=== PATIENT | female | born 1965 | race Caucasian/White ===

== ENCOUNTER → 2017-04-12 | Outpatient (CLI) | payer MEDICARE, BC ==
[2017-04-12 15:15] LABS: CHCM 33.7; HCT 42.6 % (34.0-46.0); HDW 2.62; HGB 14.1 gm/dL (11.4-16.0); MCH 30.7 pg (25.0-35.0); MCHC 33.2 g/dL (31.0-37.0); MCV 92.3 fL (80.0-100.0); Mean Platelet Volume 7.7; RBC 4.62 m/uL (3.80-5.40); RDW 13.8 % (11.5-15.5); WBC 4.5 k/uL (3.8-10.6)
[2017-04-12 15:16] VITALS: BP 119/58; PULSE 57; RESP 16; TEMP 98.1; BMI 32.5
[2017-04-12 15:33] LABS: ALT 32 U/L (9-52); AST 24 U/L (14-36); Alkaline Phosphatase 62 U/L (38-126); Anion Gap 10 mmol/L; Blood Urea Nitrogen 17 mg/dL (7-17); Calcium 9.4 mg/dL (8.4-10.2); Carbon Dioxide 29 mmol/L (22-30); Chloride 105 mmol/L (98-107); Glucose 84 mg/dL (74-99); Non-African American GFR(MDRD) >60 (>60 ml/min/1.73 sqM); Potassium 4.1 mmol/L (3.5-5.1); Sodium 144 mmol/L (137-145); Total Bilirubin 0.5 mg/dL (0.2-1.3); Total Protein 6.9 g/dL (6.3-8.2)
[2017-04-12 15:44] LABS: Prealbumin 20 mg/dL (18-36); Total Iron Binding Capacity 267 ug/dL (265-497)
[2017-04-12 16:38] LABS: Vitamin B12 625 pg/mL (239-931)
--- NOTE | 2017-04-26 17:06 | P.HPBAR ---
Bariatric H&P - History & Physicial H&P Date: 04/12/17 History & Physicial: Visit/CC: Band/Panni Patient initial contact: Initial weight: 151.046 kg Initial weight in pounds: 333.00 Height: 5 ft 6 in Initial BMI: 53.7 Last weight: Current weight: 91.342 kg Current weight in pounds: 201.00 Current BMI: 32.5 [place] body weight (based on NIH guidelines): 58.967 kg Excess body weight loss: 65.0% The patient is a 51 year-old F who presents for Bariatric Assessment. The patient is requesting information regarding pending colectomy. She's had a previous band has lost significant weight. She has lost in excess of 125 pounds. She has a minimal GERD symptoms which is managed symptomatically. She' s had trouble with chronic skin irritations and rashes from her panniculus. Past Medical History Past Medical History: GERD/Reflux Additional Past Medical History / Comment(s): HX OF AUTOIMMUNE DISORDER, SCHOGREN'S SYNDROME, EDEMA TO ONEL EXTREMETIES, TREMORS, HX MIGRAINES, LUPUS, HX OF HEPATITIS @ 14 MONTHS R/T TAINTED WATER, STATES HAS PROBLEMS R/T PITUATARY GLAND NOT HAVING "ENOUGH FLUID AROUND IT". December 2015 using snowblower and it pressed against abdomen/esophogas led to inflammation of area around lap band in January 2016 (led to band being emptied and subsequent edema). History of Any Multi-Drug Resistant Organisms: None Reported Past Surgical History: Bariatric Surgery, Cholecystectomy, Hysterectomy Additional Past Surgical History / Comment(s): MOLES REMOVED Additional Past Anesthesia/Blood Transfusion Reaction / Comm: "STATES GETS VERY HYPER, POST-OP" STATES HAD A BIPOLAR PSYCHOTIC EPISODE POST OP Past Psychological History: Depression Smoking Status: Never smoker - Past Family History Mother Family Medical History: Cancer Additional Family Medical History / Comment(s): LEUKEMIA Surgical - Exam Vital Signs Temp Pulse Resp BP 98.1 F 57 L 16 119/58 04/12/17 15:13 04/12/17 15:13 04/12/17 15:13 04/12/17 15:13 - General well developed, no distress - Eyes PERRL - ENT normal pinna - Neck no masses - Respiratory normal expansion - Abdomen Well-formed panniculus with evidence of chronic skin irritation Abdomen: soft, non tender Results - Labs 04/12/17 14:46 04/12/17 14:46 Bariatric Assessment & Plan Plan: Status post lap band surgery with 133 pound weight loss. Patient has a large well-formed panniculus. She's had chronic issues with skin irritation. Patient appeared P authorize for panniculectomy. I discussed with patient regarding competition procedure including wound infection seroma hematoma. Also discussed with the possible need for cosmetic surgery Bariatric Checklist Checklist: Plan: Checklist: EGD: 1. Hiatal hernia: 2. H. Pylori: HgbA1c: Vitamin D: Smoking: Never smoker Primary care physician referral: Psychiatry clearance: Cardiology clearance: Sleep study: Diet journal: VTE risk score: VTE risk level: Rehab needs at discharge:
== END | disposition home or self-care (01) ==
LOC: BARWHC3 13:24
PROVIDERS: ATTEND Surgery
DX: Z48.815 Encounter for surgical aftercare following surgery on the digestive system (principal); K21.9 Gastro-esophageal reflux disease without esophagitis; F32.9 Major depressive disorder, single episode, unspecified; E66.01 Morbid (severe) obesity due to excess calories; E44.0 Moderate protein-calorie malnutrition; E55.9 Vitamin D deficiency, unspecified; Z98.84 Bariatric surgery status
CPT/HCPCS: 84134; 84425; 80053; 82607; 82746; 83550; 84443; 85027; 82306; 36415; G0463; 99211

== ENCOUNTER → 2017-06-14 | Outpatient (CLI) | payer MEDICARE, BC ==
[2017-06-14 13:44] VITALS: BP 130/66; PULSE 56; RESP 16; TEMP 98; BMI 32.8
--- NOTE | 2017-06-14 14:45 | P.HPBAR ---
Bariatric H&P - History & Physicial H&P Date: 06/14/17 History & Physicial: Visit/CC: Band follow-up no adj Patient initial contact: Initial weight: 151.046 kg Initial weight in pounds: 333.00 Height: 5 ft 6 in Initial BMI: 53.7 Last weight: 201.6 Current weight: 92.334 kg Current weight in pounds: 203.00 Current BMI: 32.8 [place] body weight (based on NIH guidelines): 58.967 kg Excess body weight loss: 64.0% The patient is a 51 year-old F who presents for Bariatric Assessment. Patient presents today for LAP-BAND follow-up. She feels she is a good zone. She's had some minimal GERD. Patient has had plastic surgery consultation for abdominoplasty reduction mammoplasty thigh lift and liposuction. Past Medical History Past Medical History: GERD/Reflux Additional Past Medical History / Comment(s): HX OF AUTOIMMUNE DISORDER, SCHOGREN'S SYNDROME, EDEMA TO ONEL EXTREMETIES, TREMORS, HX MIGRAINES, LUPUS, HX OF HEPATITIS @ 14 MONTHS R/T TAINTED WATER, STATES HAS PROBLEMS R/T PITUATARY GLAND NOT HAVING "ENOUGH FLUID AROUND IT". December 2015 using snowblower and it pressed against abdomen/esophogas led to inflammation of area around lap band in January 2016 (led to band being emptied and subsequent edema). History of Any Multi-Drug Resistant Organisms: None Reported Past Surgical History: Bariatric Surgery, Cholecystectomy, Hysterectomy Additional Past Surgical History / Comment(s): MOLES REMOVED Additional Past Anesthesia/Blood Transfusion Reaction / Comm: "STATES GETS VERY HYPER, POST-OP" STATES HAD A BIPOLAR PSYCHOTIC EPISODE POST OP Smoking Status: Never smoker - Past Family History Mother Family Medical History: Cancer Additional Family Medical History / Comment(s): LEUKEMIA Surgical - Exam Vital Signs Temp Pulse Resp BP 98.0 F 56 L 16 130/66 06/14/17 13:42 06/14/17 13:42 06/14/17 13:42 06/14/17 13:42 - General well developed, no distress - Eyes PERRL - Abdomen Abdomen: soft, non tender Bariatric Assessment & Plan Plan: Patient LAP-BAND will be observed. Her GERD symptoms are minimal. The patient follow-up in 8 weeks. Bariatric Checklist Checklist: Plan: Checklist: EGD: 1. Hiatal hernia: 2. H. Pylori: HgbA1c: Vitamin D: Smoking: Never smoker Primary care physician referral: Psychiatry clearance: Cardiology clearance: Sleep study: Diet journal: VTE risk score: VTE risk level: Rehab needs at discharge:
== END | disposition home or self-care (01) ==
LOC: BARWHC3 13:07
PROVIDERS: ATTEND Surgery
DX: Z09 Encounter for follow-up examination after completed treatment for conditions other than malignant neoplasm (principal); K21.9 Gastro-esophageal reflux disease without esophagitis; Z98.84 Bariatric surgery status
CPT/HCPCS: 99211

== ENCOUNTER → 2018-08-15 | Outpatient (CLI) | payer MEDICARE, BC ==
[2018-08-15 14:00] VITALS: BP 103/68; PULSE 55; TEMP 97.7; BMI 35.5
--- NOTE | 2018-08-15 15:35 | P.HPBAR ---
Bariatric H&P - History & Physicial H&P Date: 08/15/18 History & Physicial: Visit/CC: lap band followup Patient initial contact: Initial weight: 151.046 kg Initial weight in pounds: 333.00 Height: 5 ft 6 in Initial BMI: 53.7 Last weight: Current weight: 99.79 kg Current weight in pounds: 220.00 Current BMI: 35.5 [place] body weight (based on NIH guidelines): 58.967 kg Excess body weight loss: 55.6% The patient is a 52 year-old F who presents for Bariatric Assessment. Patient presents today for lab band follow up. She has had some complaints of dysphagia. She is requesting some fluid to be removed from her band. Past Medical History Past Medical History: GERD/Reflux Additional Past Medical History / Comment(s): HX OF AUTOIMMUNE DISORDER, SCHOGREN'S SYNDROME, EDEMA TO ONEL EXTREMETIES, TREMORS, HX MIGRAINES, LUPUS, HX OF HEPATITIS @ 14 MONTHS R/T TAINTED WATER, STATES HAS PROBLEMS R/T PITUATARY GLAND NOT HAVING "ENOUGH FLUID AROUND IT". December 2015 using snowblower and it pressed against abdomen/esophogas led to inflammation of area around lap band in January 2016 (led to band being emptied and subsequent edema). History of Any Multi-Drug Resistant Organisms: None Reported Past Surgical History: Bariatric Surgery, Cholecystectomy, Hysterectomy Additional Past Surgical History / Comment(s): MOLES REMOVED Additional Past Anesthesia/Blood Transfusion Reaction / Comm: "STATES GETS VERY HYPER, POST-OP" STATES HAD A BIPOLAR PSYCHOTIC EPISODE POST OP Past Psychological History: Depression Smoking Status: Never smoker Past Alcohol Use History: None Reported Past Drug Use History: None Reported - Past Family History Mother Family Medical History: Cancer Additional Family Medical History / Comment(s): LEUKEMIA Surgical - Exam Vital Signs Temp Pulse BP 97.7 F 55 L 103/68 08/15/18 13:56 08/15/18 13:56 08/15/18 13:56 - General well developed, no distress - Eyes PERRL - ENT normal pinna - Neck no masses - Respiratory normal expansion - Cardiovascular Rhythm: regular - Abdomen Abdomen: soft, non tender Bariatric Assessment & Plan Plan: Patient's lap band was adjusted. 2 mL was removed with bed. There currently is 2 mL in the band. She'll follow-up in one month. Bariatric Checklist Checklist: Plan: Checklist: EGD: 1. Hiatal hernia: 2. H. Pylori: HgbA1c: Vitamin D: Smoking: Never smoker Primary care physician referral: Psychiatry clearance: Cardiology clearance: Sleep study: Diet journal: VTE risk score: VTE risk level: Rehab needs at discharge:
== END ==
LOC: BARWHC3 13:05
PROVIDERS: ATTEND Surgery
DX: Z48.815 Encounter for surgical aftercare following surgery on the digestive system (principal); Z98.84 Bariatric surgery status; Z90.49 Acquired absence of other specified parts of digestive tract; Z90.710 Acquired absence of both cervix and uterus
CPT/HCPCS: 99212

== ENCOUNTER → 2019-02-13 | Outpatient (CLI) | payer MEDICARE, BC ==
[2019-02-13 14:48] VITALS: BP 98/59; PULSE 55; TEMP 98.1; BMI 42.7
--- NOTE | 2019-02-14 09:58 | P.HPBAR ---
Bariatric H&P - History & Physicial H&P Date: 02/13/19 History & Physicial: Visit/CC: lpa band follow up Patient initial contact: Initial weight: 151.046 kg Initial weight in pounds: 333.00 Height: 5 ft 6 in Initial BMI: 53.7 Last weight: Current weight: 120.202 kg Current weight in pounds: 265.00 Current BMI: 42.7 [place] body weight (based on NIH guidelines): 58.967 kg Excess body weight loss: 33.4% The patient is a 53 year-old F who presents for Bariatric Assessment. Patient presents today for lab band follow up. She's had some complaints of GERD. Past Medical History Past Medical History: GERD/Reflux Additional Past Medical History / Comment(s): HX OF AUTOIMMUNE DISORDER, SCHOGREN'S SYNDROME, EDEMA TO ONEL EXTREMETIES, TREMORS, HX MIGRAINES, LUPUS, HX OF HEPATITIS @ 14 MONTHS R/T TAINTED WATER, STATES HAS PROBLEMS R/T PITUATARY GLAND NOT HAVING "ENOUGH FLUID AROUND IT". December 2015 using snowblower and it pressed against abdomen/esophogas led to inflammation of area around lap band in January 2016 (led to band being emptied and subsequent edema). History of Any Multi-Drug Resistant Organisms: None Reported Past Surgical History: Bariatric Surgery, Cholecystectomy, Hysterectomy, Orthopedic Surgery Additional Past Surgical History / Comment(s): MOLES REMOVED right Additional Past Anesthesia/Blood Transfusion Reaction / Comm: "STATES GETS VERY HYPER, POST-OP" STATES HAD A BIPOLAR PSYCHOTIC EPISODE POST OP Past Psychological History: Depression Smoking Status: Never smoker Past Alcohol Use History: None Reported Past Drug Use History: None Reported - Past Family History Mother Family Medical History: Cancer Additional Family Medical History / Comment(s): LEUKEMIA Surgical - Exam Vital Signs Temp Pulse BP 98.1 F 55 L 98/59 02/13/19 14:45 02/13/19 14:45 02/13/19 14:45 - General well developed, well nourished - Eyes PERRL - ENT normal pinna - Neck no masses - Respiratory normal expansion - Cardiovascular Rhythm: regular - Abdomen Abdomen: soft, non tender Bariatric Assessment & Plan Plan: GERD. Patient will undergo EGD. She will have her band adjusted after her EGD is performed. Bariatric Checklist Checklist: Plan: Checklist: EGD: 1. Hiatal hernia: 2. H. Pylori: HgbA1c: Vitamin D: Smoking: Never smoker Primary care physician referral: Psychiatry clearance: Cardiology clearance: Sleep study: Diet journal: VTE risk score: VTE risk level: Rehab needs at discharge:
== END ==
LOC: BARWHC3 13:05
PROVIDERS: ATTEND Surgery
DX: Z48.815 Encounter for surgical aftercare following surgery on the digestive system (principal); K21.9 Gastro-esophageal reflux disease without esophagitis; Z98.84 Bariatric surgery status; Z90.49 Acquired absence of other specified parts of digestive tract; Z90.710 Acquired absence of both cervix and uterus
CPT/HCPCS: 99212

== ENCOUNTER 2019-03-06 09:21 | Day surgery (SDC) | payer MEDICARE, BC ==
[2019-03-02 10:41] VITALS: BMI 43.2
[~2019-03-06 09:21] MED LIST: LACTATED RINGERS 1,000 ML IV SCH
[2019-03-06] MEDS ORDERED: LIDOCAINE 1% 20 ML VIAL (10MG/ML) FOR IV START INTRADERMA ONE (10:35)
[2019-03-06 10:38] VITALS: TEMP 98.2
[2019-03-06] MEDS ORDERED: LIDOCAINE 1% INJ 10MG/ML (20 ML MDV) ONE (10:58)
[2019-03-06] MEDS ORDERED: GLYCOPYRROLATE 0.2 MG/ML 2 ML VIAL ONE (10:58)
[2019-03-06] MEDS ORDERED: PROPOFOL 10 MG/ML 20 ML VIAL IV ONE (10:58)
--- NOTE | 2019-03-06 11:01 | P.GSHP ---
History of Present Illness H&P Date: 03/06/19 Chief Complaint: GERD This is a 53-year-old female who presents today for EGD. She's had issues with GERD. Patient has a LAP-BAND device. Her band is currently empty. Past Medical History Past Medical History: Cancer, Fibromyalgia, GERD/Reflux, Osteoarthritis (OA), Rheumatoid Arthritis (RA) Additional Past Medical History / Comment(s): HX OF AUTOIMMUNE DISORDER, SJOGREN'S SYNDROME, EDEMA TO ONEL EXTREMETIES, TREMORS with fatigue, HX MIGRAINES, LUPUS, HX OF HEPATITIS @ 14 MONTHS R/T TAINTED WATER, STATES HAS PROBLEMS R/T PITUATARY GLAND NOT HAVING "ENOUGH FLUID AROUND IT". December 2015 using snowblower and it pressed against abdomen/esophogas led to inflammation of area around lap band in January 2016 (led to band being emptied and subsequent edema). hx vertigo, encapsulated CA brain tumor. History of Any Multi-Drug Resistant Organisms: None Reported Past Surgical History: Bariatric Surgery, Cholecystectomy, Hernia Repair, Hysterectomy, Orthopedic Surgery Additional Past Surgical History / Comment(s): brain tumor removed "astrocytomoa" rt oophorectomy, benign MOLES REMOVED, rt knee arthroscopy Additional Past Anesthesia/Blood Transfusion Reaction / Comment(s): "STATES GETS VERY HYPER, POST-OP" Smoking Status: Never smoker - Past Family History Mother Family Medical History: Cancer Additional Family Medical History / Comment(s): LEUKEMIA Medications and Allergies Home Medications Medication Instructions Recorded Confirmed Type Artificial Tears-Hypromellose 1 drop BOTH EYES DIRECTED PRN 04/23/16 03/06/19 History [Artificial Tear Drops] Gabapentin [Neurontin] 600 mg PO BID 04/23/16 03/06/19 History Hydroxychloroquine Sulfate 200 mg PO MOTUWETHFR 04/23/16 03/06/19 History [Plaquenil] Hydroxychloroquine Sulfate 400 mg PO SUSA 04/23/16 03/06/19 History [Plaquenil] Naproxen Sodium 220 mg PO DAILY PRN 04/23/16 03/06/19 History Omeprazole [PriLOSEC] 20 mg PO BID 04/23/16 03/06/19 History Saliva Stimulant Agents Comb.3 1 applic PO DIRECTED PRN 04/23/16 03/06/19 History [Biotene Moisturizing Mouth] Amitriptyline HCl [Elavil] 25 mg PO HS 06/16/17 03/06/19 History Furosemide [Lasix] 40 mg PO DAILY 02/13/19 03/06/19 History FLUoxetine HCL [PROzac] 40 mg PO DAILY 03/02/19 03/06/19 History Fluticasone Nasal [place] [Flonase 2 spr EA NOSTRIL DAILY 03/02/19 03/06/19 History Nasal [place]] HYDROcodone/APAP 5-325MG [[place] 1 tab PO Q6HR PRN 03/02/19 03/06/19 History 5-325] Hydrocortisone Cream 1 applic TOPICAL BID PRN 03/02/19 03/06/19 History [Hydrocortisone 2.5% Cream] Meclizine [Antivert] 25 mg PO DAILY 03/02/19 03/06/19 History Montelukast [Singulair] 10 mg PO DAILY 03/02/19 03/06/19 History Multivitamin [Multivitamins Adult 1 each PO DAILY 03/02/19 03/06/19 History Gummies] Propranolol HCl [Inderal] 60 mg PO QAM 03/02/19 03/06/19 History SUMAtriptan SUCCINATE [Imitrex] 100 mg PO DAILY PRN 03/02/19 03/06/19 History Vitamin C/Biotin [Hair, Skin and 1 each PO DAILY 03/02/19 03/06/19 History Nails] tiZANidine HCL [Zanaflex] 4 mg PO DAILY 03/02/19 03/06/19 History Allergies Allergy/AdvReac Type Severity Reaction Status Date / Time Iodinated Contrast- Oral and Allergy Anaphylaxis Verified 03/06/19 10:19 IV Dye [Iodinated Contrast Media - IV Dye] povidone-iodine Allergy Anaphylaxis Verified 03/06/19 10:19 Sulfa (Sulfonamide Allergy Rash/Hives/ Verified 03/06/19 10:19 Antibiotics) EDEMA/FEVER codeine phosphate AdvReac Nausea & Verified 03/06/19 10:19 [From Tylenol-Codeine] Vomiting Surgical - Exam Vital Signs Temp Pulse Resp BP Pulse Ox 98.2 F 59 L 16 125/58 100 03/06/19 10:35 03/06/19 10:35 03/06/19 10:35 03/06/19 10:35 03/06/19 10:35 - General well developed, well nourished, no distress - Eyes PERRL - ENT normal pinna - Neck no masses - Respiratory normal expansion - Cardiovascular Rhythm: regular - Abdomen Abdomen: soft, non tender Assessment and Plan Assessment: GERD. We'll perform EGD.
--- NOTE | 2019-03-06 11:10 | P.OP ---
Date of Procedure: 03/06/19 Preoperative Diagnosis: GERD Postoperative Diagnosis: Antral gastritis No evidence of LAP-BAND prolapse or erosion Anesthesia: MAC Surgeon: Harpal Pemberton Pathology: other (Antrum) Condition: stable Disposition: PACU Description of Procedure: The patient's placed on the endoscopy table in the lateral position. She received IV sedation. The gastroscope placed oropharynx and passed in the esophagus and into the stomach. Scope was then placed through the pylorus. The first and second portion of the duodenum appeared normal. Scope was then brought back the antrum was mildly inflamed. A biopsies performed. The scope was then retroflexed and the remainder of the stomach appeared normal. There was no significant inflammation of the lap band site. There is no erosion of LAP-BAND. The proximal gastric pouch appeared to be normal in size. The GE junction was at 40 cm. The distal esophagus appeared normal. The proximal esophagus. Normal. Scope was withdrawn for patient.
[2019-03-06 11:34] VITALS: BP 108/62; PULSE 67; RESP 18
== END 2019-03-06 11:47 | disposition home or self-care (01) ==
LOC: ORWHC2ENDO 09:21
PROVIDERS: ATTEND Surgery
DX: K31.9 Disease of stomach and duodenum, unspecified (principal); K29.70 Gastritis, unspecified, without bleeding; K21.9 Gastro-esophageal reflux disease without esophagitis; Z98.84 Bariatric surgery status; M79.7 Fibromyalgia; M19.90 Unspecified osteoarthritis, unspecified site; M06.9 Rheumatoid arthritis, unspecified; M35.00 Sjogren syndrome, unspecified; R60.0 Localized edema; G25.2 Other specified forms of tremor; G43.909 Migraine, unspecified, not intractable, without status migrainosus; M32.9 Systemic lupus erythematosus, unspecified; E23.6 Other disorders of pituitary gland; Z90.49 Acquired absence of other specified parts of digestive tract; Z90.710 Acquired absence of both cervix and uterus; Z85.841 Personal history of malignant neoplasm of brain; Z80.6 Family history of leukemia; Z79.1 Long term (current) use of non-steroidal anti-inflammatories (NSAID); Z79.891 Long term (current) use of opiate analgesic; Z79.899 Other long term (current) drug therapy; Z91.041 Radiographic dye allergy status; Z88.5 Allergy status to narcotic agent; Z88.2 Allergy status to sulfonamides; Z91.048 Other nonmedicinal substance allergy status
CPT/HCPCS: 88305; 43239; J2001; J2704

== ENCOUNTER → 2019-03-06 | Outpatient (CLI) | payer MEDICARE, BC ==
[2019-03-06 14:18] VITALS: BP 123/58; PULSE 68; TEMP 98.3; BMI 43.5
--- NOTE | 2019-03-20 14:51 | P.HPBAR ---
Bariatric H&P - History & Physicial H&P Date: 03/06/19 History & Physicial: Visit/CC: follow up egd Patient initial contact: Initial weight: 151.046 kg Initial weight in pounds: 333.00 Height: 5 ft 6 in Initial BMI: 53.7 Last weight: Current weight: 122.47 kg Current weight in pounds: 270.00 Current BMI: 43.5 [place] body weight (based on NIH guidelines): 58.967 kg Excess body weight loss: 31.0% The patient is a 53 year-old F who presents for Bariatric Assessment. Patient's had complaints of GERD. She is considering switching to sleeve gastrectomy. Past Medical History Past Medical History: Cancer, Fibromyalgia, GERD/Reflux, Osteoarthritis (OA), Rheumatoid Arthritis (RA) Additional Past Medical History / Comment(s): HX OF AUTOIMMUNE DISORDER, SJOGREN'S SYNDROME, EDEMA TO ONEL EXTREMETIES, TREMORS with fatigue, HX MIGRAINES, LUPUS, HX OF HEPATITIS @ 14 MONTHS R/T TAINTED WATER, STATES HAS PROBLEMS R/T PITUATARY GLAND NOT HAVING "ENOUGH FLUID AROUND IT". December 2015 using snowblower and it pressed against abdomen/esophogas led to inflammation of area around lap band in January 2016 (led to band being emptied and subsequent edema). hx vertigo, encapsulated CA brain tumor. History of Any Multi-Drug Resistant Organisms: None Reported Past Surgical History: Bariatric Surgery, Cholecystectomy, Hernia Repair, Hysterectomy, Orthopedic Surgery Additional Past Surgical History / Comment(s): brain tumor removed "astrocytomoa" rt oophorectomy, benign MOLES REMOVED, rt knee arthroscopy Additional Past Anesthesia/Blood Transfusion Reaction / Comm: "STATES GETS VERY HYPER, POST-OP" Past Psychological History: Anxiety, Depression Smoking Status: Never smoker Past Alcohol Use History: None Reported Past Drug Use History: None Reported - Past Family History Mother Family Medical History: Cancer Additional Family Medical History / Comment(s): LEUKEMIA Surgical - Exam Vital Signs Temp Pulse BP 98.3 F 68 123/58 03/06/19 14:16 03/06/19 14:16 03/06/19 14:16 - General well developed, well nourished, no distress - Eyes PERRL - ENT normal pinna - Neck no masses - Respiratory normal expansion - Cardiovascular Rhythm: regular - Abdomen Abdomen: soft, non tender Bariatric Assessment & Plan Plan: History of recurrent GERD with LAP-BAND. Patient wishes to think about switching to sleeve gastrectomy. She may be followed up in [place] for this. Bariatric Checklist Checklist: Plan: Checklist: EGD: 1. Hiatal hernia: 2. H. Pylori: HgbA1c: Vitamin D: Smoking: Never smoker Primary care physician referral: Psychiatry clearance: Cardiology clearance: Sleep study: Diet journal: VTE risk score: VTE risk level: Rehab needs at discharge:
== END | disposition home or self-care (01) ==
LOC: BARWHC3 12:58
PROVIDERS: ATTEND Surgery
DX: K21.9 Gastro-esophageal reflux disease without esophagitis (principal); Z98.84 Bariatric surgery status; E66.9 Obesity, unspecified; Z68.41 Body mass index [BMI] 40.0-44.9, adult; Z71.3 Dietary counseling and surveillance
CPT/HCPCS: 99211

== ENCOUNTER → 2019-05-01 | Outpatient (CLI) | payer MEDICARE, BC ==
--- NOTE | 2019-05-05 13:32 | P.HPBAR ---
Bariatric H&P - History & Physicial H&P Date: 05/05/19 History & Physicial: Visit/CC: lap band follow up Patient initial contact: Initial weight: 151.046 kg Initial weight in pounds: 333.00 Height: 5 ft 6.5 in Initial BMI: 52.9 Last weight: Current weight: 122.924 kg Current weight in pounds: 271.00 Current BMI: 43.0 [place] body weight (based on NIH guidelines): 60.101 kg Excess body weight loss: 30.9% The patient is a 53 year-old F who presents for Bariatric Assessment. Patient p resents today for lab band follow. She currently is hungry and is requesting a fill of her band. Past Medical History Past Medical History: Cancer, Fibromyalgia, GERD/Reflux, Osteoarthritis (OA), Rheumatoid Arthritis (RA) Additional Past Medical History / Comment(s): HX OF AUTOIMMUNE DISORDER, SJOGREN'S SYNDROME, EDEMA TO ONEL EXTREMETIES, TREMORS with fatigue, HX MIGRAINES, LUPUS, HX OF HEPATITIS @ 14 MONTHS R/T TAINTED WATER, STATES HAS PROBLEMS R/T PITUATARY GLAND NOT HAVING "ENOUGH FLUID AROUND IT". December 2015 using snowblower and it pressed against abdomen/esophogas led to inflammation of area around lap band in January 2016 (led to band being emptied and subsequent edema). hx vertigo, encapsulated CA brain tumor. History of Any Multi-Drug Resistant Organisms: None Reported Past Surgical History: Bariatric Surgery, Cholecystectomy, Hernia Repair, Hysterectomy, Orthopedic Surgery Additional Past Surgical History / Comment(s): brain tumor removed "astrocytomoa" rt oophorectomy, benign MOLES REMOVED, rt knee arthroscopy Additional Past Anesthesia/Blood Transfusion Reaction / Comm: "STATES GETS VERY HYPER, POST-OP" Smoking Status: Never smoker - Past Family History Mother Family Medical History: Cancer Additional Family Medical History / Comment(s): LEUKEMIA Surgical - Exam Vital Signs Temp Pulse BP 98.2 F 63 123/79 05/01/19 13:15 05/01/19 13:15 05/01/19 13:15 - General well developed, well nourished - Abdomen Abdomen: soft, non tender Bariatric Assessment & Plan Plan: Patient LAP-BAND was adjusted. She had 0.5 mL added to her band. She currently is 2.5 mL in the band. She's ill drink water without difficulty. She'll follow-up in 4 weeks. Bariatric Checklist Checklist: Plan: Checklist: EGD: 1. Hiatal hernia: 2. H. Pylori: HgbA1c: Vitamin D: Smoking: Never smoker Primary care physician referral: Psychiatry clearance: Cardiology clearance: Sleep study: Diet journal: VTE risk score: VTE risk level: Rehab needs at discharge:
== END | disposition home or self-care (01) ==
CPT/HCPCS: 97803; G0463; 99212

== ENCOUNTER → 2019-06-12 | Outpatient (CLI) | payer MEDICARE, BC ==
[2019-06-12 13:33] VITALS: BP 110/78; PULSE 58; TEMP 98.2; BMI 43.2
--- NOTE | 2019-06-12 15:41 | P.HPBAR ---
Bariatric H&P - History & Physicial H&P Date: 06/12/19 History & Physicial: Visit/CC: initial visit Patient initial contact: Initial weight: 151.046 kg Initial weight in pounds: 333.00 Height: 5 ft 6.5 in Initial BMI: 52.9 Last weight: Current weight: 123.377 kg Current weight in pounds: 272.00 Current BMI: 43.2 [place] body weight (based on NIH guidelines): 60.101 kg Excess body weight loss: 30.4% The patient is a 53 year-old F who presents for Bariatric Assessment. Patient presents today for LAP-BAND adjusted. She currently feels hungry. She is requesting a fill. Past Medical History Past Medical History: Cancer, Fibromyalgia, GERD/Reflux, Osteoarthritis (OA), Rheumatoid Arthritis (RA) Additional Past Medical History / Comment(s): HX OF AUTOIMMUNE DISORDER, SJOGREN'S SYNDROME, EDEMA TO ONEL EXTREMETIES, TREMORS with fatigue, HX MIGRAINES, LUPUS, HX OF HEPATITIS @ 14 MONTHS R/T TAINTED WATER, STATES HAS PROBLEMS R/T PITUATARY GLAND NOT HAVING "ENOUGH FLUID AROUND IT". December 2015 using snowblower and it pressed against abdomen/esophogas led to inflammation of area around lap band in January 2016 (led to band being emptied and subsequent edema). hx vertigo, encapsulated CA brain tumor. History of Any Multi-Drug Resistant Organisms: None Reported Past Surgical History: Bariatric Surgery, Cholecystectomy, Hernia Repair, Hysterectomy, Orthopedic Surgery Additional Past Surgical History / Comment(s): brain tumor removed "astrocytomoa" rt oophorectomy, benign MOLES REMOVED, rt knee arthroscopy Additional Past Anesthesia/Blood Transfusion Reaction / Comm: "STATES GETS VERY HYPER, POST-OP" Past Psychological History: Anxiety, Depression Smoking Status: Never smoker Past Alcohol Use History: None Reported Past Drug Use History: None Reported - Past Family History Mother Family Medical History: Cancer Additional Family Medical History / Comment(s): LEUKEMIA Surgical - Exam Vital Signs Temp Pulse BP 98.2 F 58 L 110/78 06/12/19 13:29 06/12/19 13:29 06/12/19 13:29 - General well developed, well nourished, no distress - Abdomen Abdomen: soft, non tender Bariatric Assessment & Plan Plan: Patient LAP-BAND was adjusted. She had 1 mL added to her band. She currently 3.5 mL in the band. She'll follow-up in 4 weeks. Bariatric Checklist Checklist: Plan: Checklist: EGD: 1. Hiatal hernia: 2. H. Pylori: HgbA1c: Vitamin D: Smoking: Never smoker Primary care physician referral: dr reynaga Psychiatry clearance: Cardiology clearance: Sleep study: Diet journal: VTE risk score: VTE risk level: Rehab needs at discharge:
== END | disposition home or self-care (01) ==
LOC: BARWHC3 12:53
PROVIDERS: ATTEND Surgery
DX: Z46.51 Encounter for fitting and adjustment of gastric lap band (principal); Z90.49 Acquired absence of other specified parts of digestive tract; Z98.84 Bariatric surgery status; Z90.710 Acquired absence of both cervix and uterus
CPT/HCPCS: 99212

== ENCOUNTER → 2019-08-07 | Outpatient (CLI) | payer MEDICARE, BC ==
[2019-08-07 16:29] VITALS: BP 114/71; PULSE 51; TEMP 98.1; BMI 40.6
--- NOTE | 2019-08-07 16:34 | P.HPBAR ---
Bariatric H&P - History & Physicial H&P Date: 08/07/19 History & Physicial: Visit/CC: lap band follow up Patient initial contact: Initial weight: 151.046 kg Initial weight in pounds: 333.00 Height: 5 ft 6.5 in Initial BMI: 52.9 Last weight: Current weight: 116.12 kg Current weight in pounds: 256.00 Current BMI: 40.6 [place] body weight (based on NIH guidelines): 60.101 kg Excess body weight loss: 38.4% The patient is a 53 year-old F who presents for Bariatric Assessment. The patient presents today for lab band follow up. She's doing quite well. She's lost approximately 19 pounds since her last visit. She denies any dysphagia. She's had some minimal GERD. Past Medical History Past Medical History: Cancer, Fibromyalgia, GERD/Reflux, Osteoarthritis (OA), Rheumatoid Arthritis (RA) Additional Past Medical History / Comment(s): HX OF AUTOIMMUNE DISORDER, SJOGREN'S SYNDROME, EDEMA TO ONEL EXTREMETIES, TREMORS with fatigue, HX MIGRAINES, LUPUS, HX OF HEPATITIS @ 14 MONTHS R/T TAINTED WATER, STATES HAS PROBLEMS R/T PITUATARY GLAND NOT HAVING "ENOUGH FLUID AROUND IT". December 2015 using snowblower and it pressed against abdomen/esophogas led to inflammation of area around lap band in January 2016 (led to band being emptied and subsequent edema). hx vertigo, encapsulated CA brain tumor. History of Any Multi-Drug Resistant Organisms: None Reported Past Surgical History: Bariatric Surgery, Cholecystectomy, Hernia Repair, Hysterectomy, Orthopedic Surgery Additional Past Surgical History / Comment(s): brain tumor removed "astrocytomoa" rt oophorectomy, benign MOLES REMOVED, rt knee arthroscopy Additional Past Anesthesia/Blood Transfusion Reaction / Comm: "STATES GETS VERY HYPER, POST-OP" Past Psychological History: Anxiety, Depression Smoking Status: Never smoker Past Alcohol Use History: None Reported Past Drug Use History: None Reported - Past Family History Mother Family Medical History: Cancer Additional Family Medical History / Comment(s): LEUKEMIA Surgical - Exam Vital Signs Temp Pulse BP 98.1 F 51 L 114/71 08/07/19 16:27 08/07/19 16:27 08/07/19 16:27 - General well developed, well nourished, no distress - Eyes PERRL - ENT normal pinna - Neck no masses - Respiratory normal expansion - Cardiovascular Rhythm: regular - Abdomen Abdomen: soft, non tender Bariatric Assessment & Plan Plan: Patient is an excellent weight loss with her LAP-BAND. Her GERD is minimal will be observed. She will follow-up in 4 weeks. Bariatric Checklist Checklist: Plan: Checklist: EGD: 1. Hiatal hernia: 2. H. Pylori: HgbA1c: Vitamin D: Smoking: Never smoker Primary care physician referral: dr reynaga Psychiatry clearance: Cardiology clearance: Sleep study: Diet journal: VTE risk score: VTE risk level: Rehab needs at discharge:
== END ==
LOC: BARWHC3 14:42
PROVIDERS: ATTEND Surgery
DX: Z46.51 Encounter for fitting and adjustment of gastric lap band (principal); Z98.84 Bariatric surgery status; Z90.49 Acquired absence of other specified parts of digestive tract
CPT/HCPCS: 99211

== ENCOUNTER → 2020-08-19 | Outpatient (CLI) | payer MEDICARE, BC ==
[2020-08-19 13:53] VITALS: BP 119/57; PULSE 61; RESP 18; TEMP 98.4; BMI 38.3
--- NOTE | 2020-08-19 14:53 | P.HPBAR ---
Bariatric H&P - History & Physicial H&P Date: 08/19/20 History & Physicial: Visit/CC: follow up lap band Patient initial contact: Initial weight: 151.046 kg Initial weight in pounds: 333.00 Height: 5 ft 6 in Initial BMI: 53.7 Last weight: Current weight: 107.774 kg Current weight in pounds: 237.60 Current BMI: 38.3 [place] body weight (based on NIH guidelines): 58.967 kg Excess body weight loss: 46.9% The patient is a 54 year-old F who presents for Bariatric Assessment. Patient presents today for Band follow-up. She's had some mild GERD. She feels well otherwise. Some mild GERD. Past Medical History Past Medical History: Cancer, Fibromyalgia, GERD/Reflux, Osteoarthritis (OA), Rheumatoid Arthritis (RA) Additional Past Medical History / Comment(s): HX OF AUTOIMMUNE DISORDER, SJOGREN'S SYNDROME, EDEMA TO ONEL EXTREMETIES, TREMORS with fatigue, HX MIGRAINES, LUPUS, HX OF HEPATITIS @ 14 MONTHS R/T TAINTED WATER, STATES HAS PROBLEMS R/T PITUATARY GLAND NOT HAVING "ENOUGH FLUID AROUND IT". December 2015 using snowblower and it pressed against abdomen/esophogas led to inflammation of area around lap band in January 2016 (led to band being emptied and subsequent edema). hx vertigo, encapsulated CA brain tumor. History of Any Multi-Drug Resistant Organisms: None Reported Past Surgical History: Bariatric Surgery, Cholecystectomy, Hernia Repair, Hysterectomy, Orthopedic Surgery Additional Past Surgical History / Comment(s): brain tumor removed "astrocytomoa" rt oophorectomy, benign MOLES REMOVED, rt knee arthroscopy Additional Past Anesthesia/Blood Transfusion Reaction / Comm: "STATES GETS VERY HYPER, POST-OP" Past Psychological History: Anxiety, Depression Smoking Status: Never smoker Past Alcohol Use History: None Reported Past Drug Use History: None Reported - Past Family History Mother Family Medical History: Cancer Additional Family Medical History / Comment(s): LEUKEMIA Surgical - Exam Vital Signs Temp Pulse Resp BP 98.4 F 61 18 119/57 08/19/20 13:39 08/19/20 13:39 08/19/20 13:39 08/19/20 13:39 - General well developed, well nourished, no distress - Eyes PERRL - ENT normal pinna - Neck no masses - Respiratory normal expansion - Cardiovascular Rhythm: regular - Abdomen Abdomen: soft, non tender Bariatric Assessment & Plan Plan: Status post lap band procedure. Patient had mild GERD this is minimal will be observed. She'll follow-up in 4 weeks. Bariatric Checklist Checklist: Plan: Checklist: EGD: 1. Hiatal hernia: 2. H. Pylori: HgbA1c: Vitamin D: Smoking: Never smoker Primary care physician referral: Dr. Paul Psychiatry clearance: Cardiology clearance: Sleep study: Diet journal: VTE risk score: VTE risk level: Rehab needs at discharge:
[2020-08-19 15:10] LABS: HCT 42.3 % (34.0-46.0); MCH 28.3 pg (25.0-35.0); MCHC 30.6 g/dL (31.0-37.0); MCV 92.4 fL (80.0-100.0); Mean Platelet Volume 7.9; Platelet Count 166 k/uL (150-450); RBC 4.58 m/uL (3.80-5.40); RDW 15.6 % (11.5-15.5); WBC 3.8 k/uL (3.8-10.6)
[2020-08-19 20:06] LABS: ALT 14 U/L (8-44); AST 32 U/L (13-35); Albumin/Globulin Ratio 1.63 (1.60-3.17); Alkaline Phosphatase 65 U/L (41-126); BUN/Creat Ratio 15.56 Ratio (12.00-20.00); Carbon Dioxide 30.8 mmol/L (21.6-31.8); Chloride 105 mmol/L (96-109); Globulin 2.4 g/dL (1.6-3.3); Glucose 87 mg/dL (70-110); Non-African American GFR(CKD) 72.5 (60.0-200.0); Potassium 4.6 mmol/L (3.5-5.5); Sodium 144 mmol/L (135-145); Total Bilirubin 0.3 mg/dL (0.3-1.2); Total Protein 6.3 g/dL (6.2-8.2)
[2020-08-19 20:26] LABS: Folate, Serum >24.0 ng/mL
== END | disposition home or self-care (01) ==
LOC: BARWHC3 13:31
PROVIDERS: ATTEND Surgery
DX: Z48.815 Encounter for surgical aftercare following surgery on the digestive system (principal); K21.9 Gastro-esophageal reflux disease without esophagitis; E55.9 Vitamin D deficiency, unspecified; E44.0 Moderate protein-calorie malnutrition
CPT/HCPCS: 84425; 80053; 82607; 82746; 84443; 85027; 82306; G0463; 99211

== ENCOUNTER → 2021-02-17 | Outpatient (CLI) | payer MEDICARE, BC ==
[2021-02-17 13:17] VITALS: BP 114/57; PULSE 58; RESP 18; TEMP 98.4; BMI 34.8
--- NOTE | 2021-02-17 14:46 | P.HPBAR ---
Bariatric H&P - History & Physicial H&P Date: 02/17/21 History & Physicial: Visit/CC: follow up / lap band Patient initial contact: Initial weight: 151.046 kg Initial weight in pounds: 333.00 Height: 5 ft 6 in Initial BMI: 53.7 Last weight: Current weight: 97.976 kg Current weight in pounds: 216.00 Current BMI: 34.8 [place] body weight (based on NIH guidelines): 58.967 kg Excess body weight loss: 57.6% The patient is a 55 year-old F who presents for Bariatric Assessment. Patient presents today for lap band follow. She's doing quite well. She has some GERD. She's been workup for pneumonia. Past Medical History Past Medical History: Cancer, Fibromyalgia, GERD/Reflux, Osteoarthritis (OA), Rheumatoid Arthritis (RA) Additional Past Medical History / Comment(s): HX OF AUTOIMMUNE DISORDER, SJOGREN'S SYNDROME, EDEMA TO ONEL EXTREMETIES, TREMORS with fatigue, HX MIGRAINES, LUPUS, HX OF HEPATITIS @ 14 MONTHS R/T TAINTED WATER, STATES HAS PROBLEMS R/T PITUATARY GLAND NOT HAVING "ENOUGH FLUID AROUND IT". December 2015 using snowblower and it pressed against abdomen/esophogas led to inflammation of area around lap band in January 2016 (led to band being emptied and subsequent edema). hx vertigo, encapsulated CA brain tumor. History of Any Multi-Drug Resistant Organisms: None Reported Past Surgical History: Bariatric Surgery, Cholecystectomy, Hernia Repair, Hyste rectomy, Orthopedic Surgery Additional Past Surgical History / Comment(s): brain tumor removed "astrocytomoa" rt oophorectomy, benign MOLES REMOVED, rt knee arthroscopy Additional Past Anesthesia/Blood Transfusion Reaction / Comm: "STATES GETS VERY HYPER, POST-OP" Smoking Status: Never smoker - Past Family History Mother Family Medical History: Cancer Additional Family Medical History / Comment(s): LEUKEMIA Surgical - Exam Vital Signs Temp Pulse Resp BP 98.4 F 58 L 18 114/57 02/17/21 13:10 02/17/21 13:10 02/17/21 13:10 02/17/21 13:10 - General well developed, well nourished, no distress - Eyes PERRL - ENT normal pinna - Neck no masses - Respiratory normal expansion - Cardiovascular Rhythm: regular - Abdomen Abdomen: soft, non tender Bariatric Assessment & Plan Plan: She is LAP-BAND was adjusted. She'll 0.5 mL remove the bandage placed 3 mL in the band. She'll follow-up in 4 weeks. Bariatric Checklist Checklist: Plan: Checklist: EGD: 1. Hiatal hernia: 2. H. Pylori: HgbA1c: Vitamin D: Smoking: Never smoker Primary care physician referral: Dr. Paul Psychiatry clearance: Cardiology clearance: Sleep study: Diet journal: VTE risk score: VTE risk level: Rehab needs at discharge:
== END ==
LOC: BARWHC3 12:54
PROVIDERS: ATTEND Surgery
DX: Z46.51 Encounter for fitting and adjustment of gastric lap band (principal); Z98.84 Bariatric surgery status; M19.90 Unspecified osteoarthritis, unspecified site
CPT/HCPCS: 99212

== ENCOUNTER → 2021-11-17 | Outpatient (CLI) | payer MEDICARE, BC ==
[2021-11-17 13:49] VITALS: BP 120/66; PULSE 66; TEMP 98.4; BMI 30.7
--- NOTE | 2021-11-17 14:11 | P.HPBAR ---
Bariatric H&P - History & Physicial H&P Date: 11/17/21 History & Physicial: Visit/CC: lap band follow up Patient initial contact: Initial weight: 151.046 kg Initial weight in pounds: 333.00 Height: 5 ft 6.5 in Initial BMI: 52.9 Last weight: Current weight: 87.543 kg Current weight in pounds: 193.00 Current BMI: 30.7 [place] body weight (based on NIH guidelines): 60.101 kg Excess body weight loss: 69.8% The patient is a 56 year-old F who presents for Bariatric Assessment. She presents today for bariatric follow. She's had some minimal GERD. She is an excellent weight loss. She's loss 22 pounds since her last visit. Past Medical History Past Medical History: Cancer, Fibromyalgia, GERD/Reflux, Osteoarthritis (OA), Rheumatoid Arthritis (RA) Additional Past Medical History / Comment(s): HX OF AUTOIMMUNE DISORDER, SJOGREN'S SYNDROME, EDEMA TO ONEL EXTREMETIES, TREMORS with fatigue, HX MIGRAINES, LUPUS, HX OF HEPATITIS @ 14 MONTHS R/T TAINTED WATER, STATES HAS PROBLEMS R/T PITUATARY GLAND NOT HAVING "ENOUGH FLUID AROUND IT". December 2015 using snowblower and it pressed against abdomen/esophogas led to inflammation of area around lap band in January 2016 (led to band being emptied and subsequent edema). hx vertigo, encapsulated CA brain tumor. History of Any Multi-Drug Resistant Organisms: None Reported Past Surgical History: Bariatric Surgery, Cholecystectomy, Hernia Repair, Hysterectomy, Orthopedic Surgery Additional Past Surgical History / Comment(s): brain tumor removed "astrocytomoa" rt oophorectomy, benign MOLES REMOVED, rt knee arthroscopy Additional Past Anesthesia/Blood Transfusion Reaction / Comm: "STATES GETS VERY HYPER, POST-OP" Past Psychological History: Anxiety, Depression Smoking Status: Never smoker Past Alcohol Use History: None Reported Past Drug Use History: None Reported - Past Family History Mother Family Medical History: Cancer Additional Family Medical History / Comment(s): LEUKEMIA Surgical - Exam Vital Signs Temp Pulse BP 98.4 F 66 120/66 11/17/21 13:46 11/17/21 13:46 11/17/21 13:46 - General well developed, well nourished, no distress - Eyes PERRL - ENT normal pinna - Neck no masses - Respiratory normal expansion - Cardiovascular Rhythm: regular - Abdomen Abdomen: soft, non tender Bariatric Assessment & Plan Plan: Status post lap band procedure. Patient's GERD is minimal and will be observed. There was no adjustment her band performed today. She'll follow-up in 3 m [facility]. Bariatric Checklist Checklist: Plan: Checklist: EGD: 1. Hiatal hernia: 2. H. Pylori: HgbA1c: Vitamin D: Smoking: Never smoker Primary care physician referral: Dr. Paul Psychiatry clearance: Cardiology clearance: Sleep study: Diet journal: VTE risk score: VTE risk level: Rehab needs at discharge:
== END ==
LOC: BARWHC3 13:04
PROVIDERS: ATTEND Surgery
DX: Z09 Encounter for follow-up examination after completed treatment for conditions other than malignant neoplasm (principal); K21.9 Gastro-esophageal reflux disease without esophagitis; M19.90 Unspecified osteoarthritis, unspecified site; M06.9 Rheumatoid arthritis, unspecified; F41.9 Anxiety disorder, unspecified; F32.A Depression, unspecified; Z98.84 Bariatric surgery status; Z79.899 Other long term (current) drug therapy; Z91.041 Radiographic dye allergy status; Z88.2 Allergy status to sulfonamides; Z88.5 Allergy status to narcotic agent
CPT/HCPCS: 99211

== ENCOUNTER → 2021-12-22 | Outpatient (CLI) | payer MEDICARE, BC ==
[2021-12-22 18:32] LABS: Basophils # (A) 0.01 X 10*3/uL (0.00-0.10); Basophils % (A) 0.3 %; Eosinophils # (A) 0.02 X 10*3/uL (0.04-0.35); Eosinophils % (A) 0.6 %; HCT 42.3 % (37.2-46.3); HGB 13.3 g/dL (12.0-15.0); Immature Grans, Automated 0.3 %; Lymphocytes # (A) 1.38 X 10*3/uL (0.90-5.00); Lymphocytes % (A) 38.8 %; MCH 28.7 pg (27.0-32.0); MCHC 31.4 g/dL (32.0-37.0); MCV 91.4 fL (80.0-97.0); Mean Platelet Volume 11.3 fL (9.5-12.2); Monocytes # (A) 0.32 X 10*3/uL (0.20-1.00); NRBC Per 100 WBC 0 /100 WBCS (0.0-0.0); Neutrophils # (A) 1.82 X 10*3/uL (1.80-7.70); Platelet Count 211 X 10*3/uL (140-440); RBC 4.63 X 10*6/uL (4.10-5.20); RDW 15.4 % (11.5-14.5); WBC 3.56 X 10*3/uL (4.50-10.00)
[2021-12-22 18:35] LABS: % Iron Saturation 14.29 (12.00-45.00); ALT 15 U/L (8-44); AST 30 U/L (13-35); African American GFR (CKD) 90.3 (60.0-200.0); Albumin 4.1 g/dL (3.8-4.9); Albumin/Globulin Ratio 1.16 (1.60-3.17); Alkaline Phosphatase 73 U/L (41-126); BUN/Creat Ratio 17.78 Ratio (12.00-20.00); Blood Urea Nitrogen 14.9 mg/dL (9.0-27.0); C Reactive Protein <0.30 mg/dL (0.00-0.80); Calcium 9.8 mg/dL (8.7-10.3); Carbon Dioxide 23.7 mmol/L (20.0-27.5); Chloride 105 mmol/L (96-109); Creatine Kinase 61 U/L (26-186); Globulin 3.5 g/dL (1.6-3.3); Glucose 69 mg/dL (70-110); Iron 60 ug/dL (50-170); Non-African American GFR(CKD) 77.9 (60.0-200.0); Potassium 4.5 mmol/L (3.5-5.5); Sodium 141 mmol/L (135-145); Total Iron Binding Capacity 417 ug/dL (228-460); Total Protein 7.6 g/dL (6.2-8.2)
[2021-12-22 19:00] LABS: Immunoglobulin E 5.74 IU/mL (0.00-114.00)
[2021-12-22 19:08] LABS: Chol/HDL Ratio 3.75 Ratio; LDL Cholesterol,Calculated 153.8 mg/dL (0.0-131.0); VLDL Calculation 16.38 mg/dL (5.00-40.00)
[2021-12-22 19:16] LABS: Protein, Total 7.7 g/dL (6.2-8.2)
[2021-12-22 19:24] LABS: Erythrocyte Sedimentation Rate 34 mm/Hr (0-30)
[2021-12-23 14:03] LABS: ACTH 25.1 pg/mL (0.00-45.99)
[2021-12-23 14:31] LABS: Albumin 4.06 g/dL (3.80-4.90); Gamma Globulin 1.26 g/dL (0.70-1.50)
== END | disposition home or self-care (01) ==
LOC: LABWHC1 11:56
PROVIDERS: ATTEND Family Medicine
DX: M35.00 Sjogren syndrome, unspecified (principal); R06.00 Dyspnea, unspecified; M79.7 Fibromyalgia; E55.9 Vitamin D deficiency, unspecified; R41.3 Other amnesia; R25.1 Tremor, unspecified
CPT/HCPCS: 36415; 80053; 80061; 82024; 82306; 82525; 82533; 82550; 82607; 82785; 83540; 83550; 83735; 83880; 84146; 84165; 84443; 85025; 85379; 85652; 86001; 86140; 86606; 86609

== ENCOUNTER → 2022-05-04 | Outpatient (CLI) | payer MEDICARE, BC ==
[2022-05-04 14:15] VITALS: BP 143/85; PULSE 82; TEMP 98.6; BMI 26.9
--- NOTE | 2022-05-12 16:27 | P.HPBAR ---
Bariatric H&P - History & Physicial H&P Date: 05/04/22 History & Physicial: Visit/CC: lap band removal Patient initial contact: Initial weight: 151.046 kg Initial weight in pounds: 333.00 Height: 5 ft 6 in Initial BMI: 53.7 Last weight: Current weight: 75.75 kg Current weight in pounds: 167.00 Current BMI: 26.9 [place] body weight (based on NIH guidelines): 58.967 kg Excess body weight loss: 81.7% The patient is a 56 year-old F who presents for Bariatric Assessment. Patient resents today status post lap band removal. Her current weight is 187. She is increased weight was 196. Patient has complaints of GERD. And has a large panniculus. Patient requesting information on panniculectomy. Past Medical History Past Medical History: Cancer, Fibromyalgia, GERD/Reflux, Osteoarthritis (OA), Rheumatoid Arthritis (RA) Additional Past Medical History / Comment(s): HX OF AUTOIMMUNE DISORDER, SJOGREN'S SYNDROME, EDEMA TO ONEL EXTREMETIES, TREMORS with fatigue, HX MIGRAINES, LUPUS, HX OF HEPATITIS @ 14 MONTHS R/T TAINTED WATER, STATES HAS PROBLEMS R/T PITUATARY GLAND NOT HAVING "ENOUGH FLUID AROUND IT". December 2015 using snowblower and it pressed against abdomen/esophogas led to inflammation of area around lap band in January 2016 (led to band being emptied and subsequent edema). hx vertigo, encapsulated CA brain tumor. History of Any Multi-Drug Resistant Organisms: None Reported Past Surgical History: Bariatric Surgery, Cholecystectomy, Hernia Repair, Hysterectomy, Orthopedic Surgery Additional Past Surgical History / Comment(s): brain tumor removed "astrocytomoa" rt oophorectomy, benign MOLES REMOVED, rt knee arthroscopy Additional Past Anesthesia/Blood Transfusion Reaction / Comm: "STATES GETS VERY HYPER, POST-OP" Past Psychological History: Anxiety, Depression Smoking Status: Never smoker Past Alcohol Use History: None Reported Past Drug Use History: None Reported - Past Family History Mother Family Medical History: Cancer Additional Family Medical History / Comment(s): LEUKEMIA Surgical - Exam Vital Signs Temp Pulse BP 98.6 F 82 143/85 05/04/22 14:10 05/04/22 14:10 05/04/22 14:10 - General well developed, well nourished, no distress - Eyes PERRL - ENT normal pinna - Neck no masses - Respiratory normal expansion - Cardiovascular Rhythm: regular - Abdomen Well-formed panniculus. Evidence of chronic skin irritation Abdomen: soft, non tender Bariatric Assessment & Plan Plan: Resolving morbid obesity. Patient's BMI is 27. Patient is a well-formed panniculus. She is inflammation on panniculectomy.. Bariatric Checklist Checklist: Plan: Checklist: EGD: 1. Hiatal hernia: 2. H. Pylori: HgbA1c: Vitamin D: Smoking: Never smoker Primary care physician referral: Dr. Paul Psychiatry clearance: Cardiology clearance: Sleep study: Diet journal: VTE risk score: VTE risk level: Rehab needs at discharge:
== END ==
LOC: BARWHC3 13:22
PROVIDERS: ATTEND Surgery
DX: E66.01 Morbid (severe) obesity due to excess calories (principal); K21.9 Gastro-esophageal reflux disease without esophagitis; M19.90 Unspecified osteoarthritis, unspecified site; M06.9 Rheumatoid arthritis, unspecified; Z98.84 Bariatric surgery status; G43.909 Migraine, unspecified, not intractable, without status migrainosus; F41.9 Anxiety disorder, unspecified; F32.A Depression, unspecified; Z68.27 Body mass index [BMI] 27.0-27.9, adult; Z91.041 Radiographic dye allergy status; Z88.5 Allergy status to narcotic agent; Z88.2 Allergy status to sulfonamides
CPT/HCPCS: 99211

== ENCOUNTER → 2022-07-01 | Outpatient (CLI) | payer MEDICARE, BC ==
--- NOTE | 2022-07-02 15:11 | MM ---
Reason for Exam: Screening (asymptomatic). Last mammogram was performed 1 year(s) and 5 month(s) ago. Risk Values: [place] 5 year model risk: 0.8%. NCI Lifetime model risk: 5.3%. Prior Study Comparison: 02/23/2018 Bilateral MG 3D screening mammo w/cad, Unknown. 02/10/2021 Bilateral MG 3D screening mammo w/cad, [facility]. Tissue Density: There are scattered fibroglandular densities. Findings: Analyzed By CAD. Stable asymmetric prominent soft tissue in the right breast outer aspect. Stable distortion in the right breast. Benign-appearing bilateral axillary lymph nodes are redemonstrated. There is no suspicious group of microcalcifications or new suspicious mass in either breast. Overall Assessment: Benign, BI-RAD 2 Management: Screening Mammogram of both breasts in 1 year. A clinical breast exam by your physician is recommended on an annual basis and results should be correlated with mammographic findings. Electronically signed and approved by: Franko Vazquez M.D.
== END | disposition home or self-care (01) ==
LOC: RADMAMWWP 13:44
PROVIDERS: ATTEND Family Medicine
DX: Z12.31 Encounter for screening mammogram for malignant neoplasm of breast (principal)
CPT/HCPCS: 77063; 77067

== ENCOUNTER → 2022-08-11 | Outpatient (CLI) | payer MEDICARE, BC ==
--- NOTE | 2022-08-11 11:27 | MR ---
EXAMINATION TYPE: MR cervical spine wo con DATE OF EXAM: 08/11/2022 COMPARISON: None HISTORY: Neck soreness, headaches, limp arms, shoulders TECHNIQUE: Multiplanar, multisequence images of the cervical spine were acquired without contrast. C2-C3: No evidence for degenerative disc disease. No disc bulge/herniation or protrusion. No Canal stenosis. Foramina are patent bilaterally. C3-C4: No evidence for degenerative disc disease. Minimal posterior disc bulge. No Canal stenosis. Foramina are patent bilaterally. C4-C5: No evidence for degenerative disc disease. No disc bulge/herniation or protrusion. No Canal stenosis. Foramina are patent bilaterally. C5-C6: No evidence for degenerative disc disease. No disc bulge/herniation or protrusion. No Canal stenosis. Foramina are patent bilaterally. C6-C7: No evidence for degenerative disc disease. No disc bulge/herniation or protrusion. No Canal stenosis. Foramina are patent bilaterally. C7-T1: No evidence for degenerative disc disease. No disc bulge/herniation or protrusion. No Canal stenosis. Foramina are patent bilaterally. Nerve sheath diverticulum is suspected on the left and ri ght, sagittal image 14 and 3, contrast-enhanced MRI could BE performed for additional evaluation Cervical segments are intact. Cervical spinal cord is of normal signal. Craniovertebral junction rel ationships are within normal limits. Cervical vertebral bodies show preserved height and alignment. There is mild spondylosis, minimal endplate discogenic marrow signal change, some loss of disc height signal at C3-4, C4-5 and C5-6 and C6-7 is consistent with disc desiccation and degenerative disc dis ease. There is no significant spinal stenosis. There is an empty sella noted incidentally. Probable h emangioma in the posterior elements, left pedicle C7. There is a spinal curvature. IMPRESSION: Mild degenerative disc disease. Additional findings above.
--- NOTE | 2022-08-11 12:01 | XR ---
EXAMINATION TYPE: XR cervical spine comp DATE OF EXAM: 08/11/2022 11:27 AM INDICATION: Patient age:Female; 56 years old; Reason for study: M5000; [facility]. COMPARISON: MR cervical spine 08/11/2022 TECHNIQUE: The cervical spine was imaged in 4 projections. Frontal, lateral, odontoid and bilateral o blique. FINDINGS: The osseous structures show normal alignment without evidence of an acute fracture. Straightening of the cervical spine. There are osteophytes noted throughout the cervical spine on the anterior and lat eral aspects of the vertebral bodies. Multilevel mild intervertebral disc space narrowing. Pedicles a re intact. Soft tissues are within normal limits. The odontoid appears intact. IMPRESSION: 1. No fracture or dislocation. 2. Mild degenerative disc disease changes of the cervical spine.
== END | disposition home or self-care (01) ==
LOC: RADMRIMAIN 10:31
PROVIDERS: ATTEND Family Medicine
DX: M50.30 Other cervical disc degeneration, unspecified cervical region (principal); M50.00 Cervical disc disorder with myelopathy, unspecified cervical region
CPT/HCPCS: 72050; 72141

== ENCOUNTER → 2022-08-12 | Outpatient (CLI) | payer MEDICARE, BC ==
[2022-08-12 16:10] LABS: Basophils # (A) 0.02 X 10*3/uL (0.00-0.10); Basophils % (A) 0.5 %; Eosinophils # (A) 0.03 X 10*3/uL (0.04-0.35); Eosinophils % (A) 0.8 %; Immature Grans, Automated 0.3 %; Lymphocytes # (A) 1.41 X 10*3/uL (0.90-5.00); Lymphocytes % (A) 35.9 %; MCH 29.7 pg (27.0-32.0); MCHC 33.3 g/dL (32.0-37.0); MCV 89.2 fL (80.0-97.0); Mean Platelet Volume 10.3 fL (9.5-12.2); Monocytes # (A) 0.25 X 10*3/uL (0.20-1.00); Monocytes % (A) 6.4 %; NRBC Per 100 WBC 0 /100 WBCS (0.0-0.0); Neutrophils # (A) 2.21 X 10*3/uL (1.80-7.70); Neutrophils % (A) 56.1 %; Platelet Count 186 X 10*3/uL (140-440); RBC 4.37 X 10*6/uL (4.10-5.20); RDW 14.5 % (11.5-14.5); WBC 3.93 X 10*3/uL (4.50-10.00)
[2022-08-12 17:26] LABS: Cyclic Citrull Pep IgG Unit <0.5 U/mL; Cyclic Citrullinated Pep IgG NEGATIVE (NEGATIVE)
[2022-08-12 19:24] LABS: ALT 12 U/L (8-44); AST 26 U/L (13-35); African American GFR (CKD) 90.8 (60.0-200.0); Albumin 3.6 g/dL (3.8-4.9); Albumin/Globulin Ratio 1.32 (1.60-3.17); Alkaline Phosphatase 80 U/L (41-126); BUN/Creat Ratio 19.54 Ratio (12.00-20.00); Blood Urea Nitrogen 16.3 mg/dL (9.0-27.0); Calcium 9.1 mg/dL (8.7-10.3); Carbon Dioxide 23.6 mmol/L (20.0-27.5); Chloride 104 mmol/L (96-109); Chol/HDL Ratio 4.19 Ratio; Creatine Kinase 47 U/L (26-186); Globulin 2.8 g/dL (1.6-3.3); Glucose 75 mg/dL (70-110); LDL Cholesterol,Calculated 132.4 mg/dL (0.0-131.0); Non-African American GFR(CKD) 78.4 (60.0-200.0); Potassium 4.8 mmol/L (3.5-5.5); Sodium 141 mmol/L (135-145); Total Protein 6.4 g/dL (6.2-8.2); VLDL Calculation 17.64 mg/dL (5.00-40.00)
[2022-08-12 19:27] LABS: Erythrocyte Sedimentation Rate 38 mm/Hr (0-30)
[2022-08-12 20:58] LABS: Valproic Acid (Depakene) 19.3 ug/mL (50.0-100.0)
[2022-08-13 10:56] LABS: Protein, Total 6.2 g/dL (6.2-8.2)
[2022-08-13 14:00] LABS: Lyme IgG/IgM 0.16 Index
== END | disposition home or self-care (01) ==
LOC: LABWHC1 10:51
PROVIDERS: ATTEND Family Medicine
DX: G90.09 Other idiopathic peripheral autonomic neuropathy (principal); E78.2 Mixed hyperlipidemia; M79.7 Fibromyalgia; D35.2 Benign neoplasm of pituitary gland; G43.119 Migraine with aura, intractable, without status migrainosus; M26.609 Unspecified temporomandibular joint disorder, unspecified side; R25.1 Tremor, unspecified
CPT/HCPCS: 36415; 80053; 80061; 80164; 82525; 82550; 82607; 84146; 84165; 84439; 84443; 85025; 85652; 86038; 86039; 86140; 86200; 86618

== ENCOUNTER → 2022-09-11 | Outpatient (CLI) | payer MEDICARE, BC ==
--- NOTE | 2022-09-14 10:45 | CT ---
EXAMINATION TYPE: CT abdomen pelvis w con CT DLP: 1122.60 mGycm, Automated exposure control for dose reduction was used. DATE OF EXAM: 09/11/2022 5:35 PM COMPARISON: CT abdomen pelvis most recent from CLINICAL INDICATION:Female, 56 years old with history of R10.84 abdominal pain; abdominal pain and bl oating. TECHNIQUE: Axial CT of the abdomen and pelvis. Sagittal and coronal reformats were created on a [employer] workstation. Contrast used:70 mL of Isovue 300 with IV Contrast, Oral contrast used: with Oral Contrast FINDINGS: LOWER CHEST: Unremarkable ABDOMEN LIVER: Unremarkable GALLBLADDER AND BILE DUCTS: Gallbladder is surgically absent with mild intrahepatic and extra hepatic biliary dilatation likely physiologic and a postcholecystectomy change. No evidence of choledocholit hiasis. PANCREAS: Unremarkable. SPLEEN: Unremarkable. ADRENAL GLANDS: Unremarkable. KIDNEYS AND URETERS: No evidence of hydronephrosis or renal calculus. The ureters are unremarkable. PELVIS BLADDER: Unremarkable REPRODUCTIVE: Unremarkable. ABDOMEN & PELVIS STOMACH AND BOWEL: No evidence of bowel obstruction. Gastric lap band in place flattened position wit h the angle of 74. Distal circumferential esophageal wall thickening with contrast layering within th e esophagus, wall measuring up to 6 mm. There is large stool burden throughout the colon. PERITONEUM: No evidence of pneumoperitoneum or free fluid. VASCULATURE: No evidence of aortic aneurysm. MUSCULOSKELETAL: No acute osseous abnormalities, mild multilevel disc degeneration changes throughout the spine. LYMPH NODES: No gross evidence for lymphadenopathy. SOFT TISSUE/ABDOMINAL WALL: Unremarkable IMPRESSION: 1. Increased angle of the gastric lap band suggesting migration. 2. Circumferential esophageal wall thickening with ingested oral contrast in the lumen likely repres enting esophagitis and reflux. 3. Large stool burden throughout the colon.
== END | disposition home or self-care (01) ==
LOC: RADCTMAIN 16:45
PROVIDERS: ATTEND Family Medicine
DX: K22.89 Other specified disease of esophagus (principal); R10.84 Generalized abdominal pain
CPT/HCPCS: 74177; Q9967

== ENCOUNTER → 2022-11-09 | Outpatient (CLI) | payer MEDICARE, BC ==
[2022-11-09 19:04] LABS: HCT 43.8 % (37.2-46.3); HGB 13.6 g/dL (12.0-15.0); MCH 27.9 pg (27.0-32.0); MCHC 31.1 g/dL (32.0-37.0); MCV 89.8 fL (80.0-97.0); Mean Platelet Volume 10.7 fL (9.5-12.2); NRBC Per 100 WBC 0 /100 WBCS (0.0-0.0); Platelet Count 171 X 10*3/uL (140-440); RBC 4.88 X 10*6/uL (4.10-5.20); RDW 14.7 % (11.5-14.5); WBC 3.77 X 10*3/uL (4.50-10.00)
[2022-11-09 19:16] LABS: Erythrocyte Sedimentation Rate 39 mm/Hr (0-30)
[2022-11-10 04:15] LABS: Appearance,Urine Clear (Clear); Bilirubin,Urine Negative (Negative); Blood,Urine Negative (Negative); Color,Urine Yellow (Yellow); Ketones,Urine Negative (Negative); Nitrite,Urine Negative (Negative); Specific Gravity,Urine 1.011 (1.001-1.030); Urobilinogen,Urine 0.2 (0.2,1.0)
[2022-11-10 04:22] LABS: Bacteria,Urine Trace /HPF (None Seen)
[2022-11-10 10:41] LABS: ALT 15 U/L (8-44); AST 25 U/L (13-35); African American GFR (CKD) 64.5 (60.0-200.0); Albumin 4.2 g/dL (3.8-4.9); Albumin/Globulin Ratio 1.45 (1.60-3.17); Alkaline Phosphatase 76 U/L (41-126); BUN/Creat Ratio 14.27 Ratio (12.00-20.00); Blood Urea Nitrogen 15.7 mg/dL (9.0-27.0); C Reactive Protein <0.30 mg/dL (0.00-0.80); Calcium 9.7 mg/dL (8.7-10.3); Carbon Dioxide 30.6 mmol/L (20.0-27.5); Chloride 101 mmol/L (96-109); Globulin 2.9 g/dL (1.6-3.3); Glucose 71 mg/dL (70-110); Non-African American GFR(CKD) 55.7 (60.0-200.0); Potassium 4.6 mmol/L (3.5-5.5); Sodium 142 mmol/L (135-145); Total Protein 7.1 g/dL (6.2-8.2)
[2022-11-10 13:40] LABS: Anti-DNA, DS unit <1.0 IU/mL; DNA Double-Stranded NEGATIVE (NEGATIVE)
== END | disposition home or self-care (01) ==
LOC: LABWHC1 14:20
DX: Z51.81 Encounter for therapeutic drug level monitoring (principal); L93.0 Discoid lupus erythematosus; M35.00 Sjogren syndrome, unspecified
CPT/HCPCS: 36415; 80053; 81001; 85027; 85652; 86140; 86225

== ENCOUNTER → 2022-12-07 | Outpatient (CLI) | payer MEDICARE, BC ==
[2022-12-07 15:11] VITALS: BP 122/70; PULSE 71; RESP 16; TEMP 98.1; BMI 33.0
--- NOTE | 2023-01-05 12:20 | P.HPBAR ---
Bariatric H&P - History & Physicial H&P Date: 12/07/22 History & Physicial: Visit/CC: Band Adj Patient initial contact: Initial weight: 151.046 kg Initial weight in pounds: 333.00 Height: 5 ft 6 in Initial BMI: 53.7 Last weight: Current weight: 92.986 kg Current weight in pounds: 205.00 Current BMI: 33.0 [place] body weight (based on NIH guidelines): 58.967 kg Excess body weight loss: 63.0% The patient is a 57 year-old F who presents for Bariatric Assessment. Patient resents today for LAP-BAND adjustment. She is currently feeling hungry. She requested fill of her band. Past Medical History Past Medical History: Cancer, Fibromyalgia, GERD/Reflux, Osteoarthritis (OA), Rheumatoid Arthritis (RA) Additional Past Medical History / Comment(s): HX OF AUTOIMMUNE DISORDER, SJOGREN'S SYNDROME, EDEMA TO NOEL EXTREMETIES, TREMORS with fatigue, HX MIGRAINES, LUPUS, HX OF HEPATITIS @ 14 MONTHS R/T TAINTED WATER, STATES HAS PROBLEMS R/T PITUATARY GLAND NOT HAVING "ENOUGH FLUID AROUND IT". December 2015 using snowblower and it pressed against abdomen/esophogas led to inflammation of area around lap band in January 2016 (led to band being emptied and subsequent edema). hx vertigo, encapsulated CA brain tumor. History of Any Multi-Drug Resistant Organisms: None Reported Past Surgical History: Bariatric Surgery, Cholecystectomy, Hernia Repair, Hysterectomy, Orthopedic Surgery Additional Past Surgical History / Comment(s): brain tumor removed "astrocytomoa" rt oophorectomy, benign MOLES REMOVED, rt knee arthroscopy Additional Past Anesthesia/Blood Transfusion Reaction / Comm: "STATES GETS VERY HYPER, POST-OP" Past Psychological History: Anxiety, Depression Smoking Status: Never smoker Past Alcohol Use History: None Reported Past Drug Use History: None Reported - Past Family History Mother Family Medical History: Cancer Additional Family Medical History / Comment(s): LEUKEMIA Surgical - Exam Vital Signs Temp Pulse Resp BP 98.1 F 71 16 122/70 12/07/22 15:08 12/07/22 15:08 12/07/22 15:08 12/07/22 15:08 - General well developed, well nourished, no distress - Eyes PERRL - Abdomen Abdomen: soft, non tender Bariatric Assessment & Plan Plan: Patient's LAP-BAND was adjusted. She had 2.8 mL added to the band. She will follow-up in 4 weeks. Bariatric Checklist Checklist: Plan: Checklist: EGD: 1. Hiatal hernia: 2. H. Pylori: HgbA1c: Vitamin D: Smoking: Never smoker Primary care physician referral: Dr. Paul Psychiatry clearance: Cardiology clearance: Sleep study: Diet journal: VTE risk score: VTE risk level: Rehab needs at discharge:
== END ==
LOC: BARWHC3 14:28
PROVIDERS: ATTEND Surgery
DX: E66.01 Morbid (severe) obesity due to excess calories (principal); C80.1 Malignant (primary) neoplasm, unspecified; M79.7 Fibromyalgia; K21.9 Gastro-esophageal reflux disease without esophagitis; M19.90 Unspecified osteoarthritis, unspecified site; M06.9 Rheumatoid arthritis, unspecified; Z68.33 Body mass index [BMI] 33.0-33.9, adult; Z46.51 Encounter for fitting and adjustment of gastric lap band; Z91.041 Radiographic dye allergy status; Z88.2 Allergy status to sulfonamides; Z88.5 Allergy status to narcotic agent
CPT/HCPCS: 99212

== ENCOUNTER → 2023-04-09 | Outpatient (CLI) | payer MEDICARE, BC ==
[2023-04-09 15:54] LABS: Basophils # (A) 0.02 X 10*3/uL (0.00-0.10); Basophils % (A) 0.5 %; Eosinophils # (A) 0.03 X 10*3/uL (0.04-0.35); Eosinophils % (A) 0.7 %; HGB 12.9 d/dL (12.0-15.0); Lymphocytes # (A) 1.69 X 10*3/uL (0.90-5.00); Lymphocytes % (A) 41.7 %; MCH 27.8 pg (27.0-32.0); MCHC 32.3 d/dL (32.0-37.0); MCV 86.2 FL (80.0-97.0); Mean Platelet Volume 10.8 FL (9.5-12.2); Monocytes % (A) 9.9 %; NRBC Per 100 WBC 0 X 10*3/uL (0.00-0.01); Platelet Count 188 X 10*3/uL (140-440); RBC 4.64 X 10*6/uL (4.10-5.20); RDW 15.5 % (11.5-14.5); WBC 4.05 X 10*3/uL (4.50-10.00)
[2023-04-09 22:22] LABS: Cyclic Citrull Pep IgG Unit <1.5 U/mL (<=3.9); Cyclic Citrullinated Pep IgG Negative
[2023-04-09 23:06] LABS: ALT 14 U/L (8-44); AST 28 U/L (13-35); Albumin 3.9 d/dL (3.8-4.9); Albumin/Globulin Ratio 1.39 Ratio (1.60-3.17); Alkaline Phosphatase 84 U/L (41-126); Blood Urea Nitrogen 14.4 mg/dL (9.0-27.0); Calcium 9.5 mg/dL (8.7-10.3); Carbon Dioxide 19.8 mmol/L (21.6-31.8); Chloride 106 mmol/L (96-109); Chol/HDL Ratio 3.51 Ratio; Globulin 2.8 d/dL (1.6-3.3); Glucose 82 mg/dL (70-110); LDL Cholesterol,Calculated 114.8 mg/dL (0.0-131.0); Potassium 4.9 mmol/L (3.5-5.5); Sodium 140 mmol/L (135-145); T4, Free (Free Thyroxine) 1.16 ng/dL (0.80-1.80); Total Bilirubin 0.2 mg/dL (0.3-1.2); Total Protein 6.7 d/dL (6.2-8.2); VLDL Calculation 17.52 mg/dL (5.00-40.00)
== END | disposition home or self-care (01) ==
LOC: LABWHC1 12:02
PROVIDERS: ATTEND Family Medicine
DX: Z00.01 Encounter for general adult medical examination with abnormal findings (principal); I89.0 Lymphedema, not elsewhere classified; E73.9 Lactose intolerance, unspecified; E53.8 Deficiency of other specified B group vitamins; E78.2 Mixed hyperlipidemia; E55.9 Vitamin D deficiency, unspecified; G90.09 Other idiopathic peripheral autonomic neuropathy; G47.30 Sleep apnea, unspecified
CPT/HCPCS: 36415; 80053; 80061; 82306; 82607; 83036; 84146; 84439; 84443; 85025; 86038; 86039; 86200; 86618

== ENCOUNTER → 2024-01-31 | Outpatient (CLI) | payer MEDICARE, BC ==
--- NOTE | 2024-02-01 09:59 | XR ---
EXAMINATION TYPE: XR lumbar spine 3V DATE OF EXAM: 01/31/2024 Comparison: None Clinical History: 58-year-old female [id number] Findings: Lap band device is noted. There is rightward truncal shift. Cholecystectomy clips. Slight extra conve x curvature thoracolumbar junction. Hypertrophic facet arthropathy mid to lower lumbar spine. Vertebr al body heights are preserved. Alignment is maintained. Impression: 1. Slight dextroconvex curvature at the thoracolumbar junction and slight rightward truncal shift. Fi ndings may be positional or due to pain or muscle spasm. 2. Hypertrophic facet arthropathy mid to lower lumbar spine. 3. No vertebral compression collapse or malalignment.
== END | disposition home or self-care (01) ==
LOC: RADXRMAIN 16:57
PROVIDERS: ATTEND Family Medicine
DX: M47.26 Other spondylosis with radiculopathy, lumbar region (principal); M43.8X5 Other specified deforming dorsopathies, thoracolumbar region
CPT/HCPCS: 72100

== ENCOUNTER → 2024-02-14 | Outpatient (CLI) | payer MEDICARE, BC ==
[2024-02-14 12:20] VITALS: BP 138/82; PULSE 76; RESP 14; TEMP 97.8
--- NOTE | 2024-05-04 12:05 | P.HPBAR ---
Bariatric H&P - History & Physicial H&P Date: 02/14/24 History & Physicial: Visit/CC: follow up Patient initial contact: Initial weight: 151.046 kg Initial weight in pounds: 333.00 Height: Initial BMI: Last weight: Current weight: 91.172 kg Current weight in pounds: 201.00 Current BMI: [place] body weight (based on NIH guidelines): Excess body weight loss: The patient is a 58 year-old F who presents for Bariatric Assessment. This is a 58-year-old female who has undergone previous sleeve gastric. Patient is an excellent weight loss. She has minimal plaints of GERD. Past Medical History Past Medical History: Cancer, Fibromyalgia, GERD/Reflux, Osteoarthritis (OA), Rheumatoid Arthritis (RA) Additional Past Medical History / Comment(s): HX OF AUTOIMMUNE DISORDER, SJOGREN'S SYNDROME, EDEMA TO ONEL EXTREMETIES, TREMORS with fatigue, HX MIGRAINES, LUPUS, HX OF HEPATITIS @ 14 MONTHS R/T TAINTED WATER, STATES HAS PROBLEMS R/T PITUATARY GLAND NOT HAVING "ENOUGH FLUID AROUND IT". December 2015 using snowblower and it pressed against abdomen/esophogas led to inflammation of area around lap band in January 2016 (led to band being emptied and subsequent edema). hx vertigo, encapsulated CA brain tumor. History of Any Multi-Drug Resistant Organisms: None Reported Past Surgical History: Bariatric Surgery, Cholecystectomy, Hernia Repair, Hysterectomy, Orthopedic Surgery Additional Past Surgical History / Comment(s): brain tumor removed "astrocytomoa" rt oophorectomy, benign MOLES REMOVED, rt knee arthroscopy Additional Past Anesthesia/Blood Transfusion Reaction / Comm: "STATES GETS VERY HYPER, POST-OP" Past Psychological History: Anxiety, Depression Smoking Status: Never smoker Past Alcohol Use History: None Reported Past Drug Use History: None Reported - Past Family History Mother Family Medical History: Cancer Additional Family Medical History / Comment(s): LEUKEMIA Surgical - Exam Vital Signs Temp Pulse Resp BP 97.8 F 76 14 138/82 02/14/24 11:59 02/14/24 11:59 02/14/24 11:59 02/14/24 11:59 Vital signs appear stable. Abdomen is soft nontender Bariatric Assessment & Plan Plan: Status post sleeve yesterday. Patient gerd is minimal will be observed. She will follow-up in 3 months. Bariatric Checklist Checklist: Plan: Checklist: EGD: 1. Hiatal hernia: 2. H. Pylori: HgbA1c: Vitamin D: Smoking: Never smoker Primary care physician referral: Dr. Paul Psychiatry clearance: Cardiology clearance: Sleep study: Diet journal: VTE risk score: VTE risk level: Rehab needs at discharge:
== END ==
LOC: BARWHC3 09:57
PROVIDERS: ATTEND Surgery
DX: E66.01 Morbid (severe) obesity due to excess calories (principal); K21.9 Gastro-esophageal reflux disease without esophagitis; Z91.041 Radiographic dye allergy status; Z88.2 Allergy status to sulfonamides; Z88.5 Allergy status to narcotic agent; Z88.8 Allergy status to other drugs, medicaments and biological substances; Z90.3 Acquired absence of stomach [part of]; Z98.84 Bariatric surgery status
CPT/HCPCS: 99211

== ENCOUNTER → 2024-06-26 | Outpatient (CLI) | payer MEDICARE, BC ==
[2024-06-26 09:47] VITALS: BP 113/58; PULSE 66; RESP 16; TEMP 98.1; BMI 32.4
--- NOTE | 2024-06-26 13:38 | P.HPBAR ---
Bariatric H&P - History & Physicial H&P Date: 06/26/24 History & Physicial: Visit/CC: f/u lapband Patient initial contact: Initial weight: 151.046 kg Initial weight in pounds: 333.00 Height: 5 ft 6 in Initial BMI: 53.7 Last weight: Current weight: 91.172 kg Current weight in pounds: 201.00 Current BMI: 32.4 [place] body weight (based on NIH guidelines): 58.967 kg Excess body weight loss: 65.0% The patient is a 58 year-old F who presents for Bariatric Assessment. Patient presents today for Lap-Band follow-up. Her weight has remained stable. She states she has some minimal GERD. Past Medical History Past Medical History: Cancer, Fibromyalgia, GERD/Reflux, Osteoarthritis (OA), Rheumatoid Arthritis (RA) Additional Past Medical History / Comment(s): HX OF AUTOIMMUNE DISORDER, SJOGREN'S SYNDROME, EDEMA TO ONEL EXTREMETIES, TREMORS with fatigue, HX MIGRAINES, LUPUS, HX OF HEPATITIS @ 14 MONTHS R/T TAINTED WATER, STATES HAS PROBLEMS R/T PITUATARY GLAND NOT HAVING "ENOUGH FLUID AROUND IT". December 2015 using snowblower and it pressed against abdomen/esophogas led to inflammation of area around lap band in January 2016 (led to band being emptied and subsequent edema). hx vertigo, encapsulated CA brain tumor. osteoporosis, curvature in spine History of Any Multi-Drug Resistant Organisms: None Reported Past Surgical History: Bariatric Surgery, Cholecystectomy, Hernia Repair, Hysterectomy, Orthopedic Surgery Additional Past Surgical History / Comment(s): brain tumor removed "astrocytomoa" rt oophorectomy, benign MOLES REMOVED, rt knee arthroscopy, Additional Past Anesthesia/Blood Transfusion Reaction / Comm: "STATES GETS VERY HYPER, POST-OP" Past Psychological History: Anxiety, Depression Smoking Status: Never smoker Past Alcohol Use History: None Reported Past Drug Use History: None Reported - Past Family History Mother Family Medical History: Cancer Additional Family Medical History / Comment(s): LEUKEMIA Surgical - Exam Vital Signs Temp Pulse Resp BP 98.1 F 66 16 113/58 06/26/24 09:02 06/26/24 09:02 06/26/24 09:02 06/26/24 09:02 - General well developed, well nourished, no distress - Eyes PERRL - ENT normal pinna - Neck no masses - Cardiovascular Rhythm: regular - Abdomen Abdomen: soft, non tender Bariatric Assessment & Plan Plan: Ge resolving morbid obesity. Patient's gerd is minimal and will be observed. Bariatric Checklist Checklist: Plan: Checklist: EGD: 1. Hiatal hernia: 2. H. Pylori: HgbA1c: Vitamin D: Smoking: Never smoker Primary care physician referral: Dr. Paul Psychiatry clearance: Cardiology clearance: Sleep study: Diet journal: VTE risk score: VTE risk level: Rehab needs at discharge:
== END ==
LOC: BARWHC3 08:33
PROVIDERS: ATTEND Surgery
DX: E66.01 Morbid (severe) obesity due to excess calories
CPT/HCPCS: 99211

== ENCOUNTER → 2024-10-02 | Outpatient (CLI) | payer MEDICARE, BC ==
[2024-10-02 14:59] LABS: Basophils # (A) 0.02 X 10*3/uL (0.00-0.10); Basophils % (A) 0.6 %; Eosinophils # (A) 0.02 X 10*3/uL (0.04-0.35); Eosinophils % (A) 0.6 %; HCT 36.3 % (37.2-46.3); HGB 11.1 g/dL (12.0-15.0); Lymphocytes # (A) 1.56 X 10*3/uL (0.90-5.00); Lymphocytes % (A) 44.6 %; MCH 24.2 pg (27.0-32.0); MCHC 30.6 g/dL (32.0-37.0); MCV 79.3 FL (80.0-97.0); Monocytes % (A) 8.6 %; NRBC Per 100 WBC 0 X 10*3/uL (0.00-0.01); Neutrophils # (A) 1.59 X 10*3/uL (1.80-7.70); Neutrophils % (A) 45.3 %; Platelet Count 195 X 10*3/uL (140-440); RBC 4.58 X 10*6/uL (4.10-5.20); RDW 18.4 % (11.5-14.5)
[2024-10-02 15:31] LABS: ALT 10 U/L (8-44); AST 23 U/L (13-35); Albumin 3.8 g/dL (3.8-4.9); Albumin/Globulin Ratio 1.36 Ratio (1.60-3.17); Alkaline Phosphatase 89 U/L (41-126); BUN/Creat Ratio 26.12 Ratio (12.00-20.00); Blood Urea Nitrogen 20.9 mg/dL (9.0-27.0); C Reactive Protein <0.30 mg/dL (0.00-0.80); Calcium 8.9 mg/dL (8.7-10.3); Carbon Dioxide 24.1 mmol/L (21.6-31.8); Chloride 108 mmol/L (96-109); Chol/HDL Ratio 3.44 Ratio; Globulin 2.8 g/dL (1.6-3.3); Glucose 83 mg/dL (70-110); LDL Cholesterol,Calculated 93.9 mg/dL (0.0-131.0); Potassium 4.2 mmol/L (3.5-5.5); Sodium 142 mmol/L (135-145); Total Bilirubin 0.2 mg/dL (0.3-1.2); Total Protein 6.6 g/dL (6.2-8.2)
[2024-10-02 15:50] LABS: Erythrocyte Sedimentation Rate 20 mm/Hr (0-30)
[2024-10-04 05:57] LABS: Methylmalonic Acid 0.14 umol/L (<0.40)
== END | disposition home or self-care (01) ==
LOC: LABWHC1 11:05
PROVIDERS: ATTEND Family Medicine
DX: M35.00 Sjogren syndrome, unspecified (principal); R41.3 Other amnesia; E78.2 Mixed hyperlipidemia; E53.9 Vitamin B deficiency, unspecified; D53.9 Nutritional anemia, unspecified
CPT/HCPCS: 36415; 80053; 80061; 82607; 83921; 84255; 84425; 84443; 84590; 84630; 85025; 85652; 86140

== ENCOUNTER → 2024-10-30 | Outpatient (CLI) | payer MEDICARE, BC | END | disposition home or self-care (01) | LOC: LABWHC1 12:28 | PROVIDERS: ATTEND Family Medicine | DX: Z00.00 Encounter for general adult medical examination without abnormal findings (principal); Z53.9 Procedure and treatment not carried out, unspecified reason | CPT/HCPCS: 36415 ==

== ENCOUNTER → 2024-11-27 | Outpatient (CLI) | payer MEDICARE, BC ==
[2024-11-27 19:46] LABS: Basophils # (A) 0.03 X 10*3/uL (0.00-0.10); Basophils % (A) 0.7 %; Eosinophils # (A) 0.02 X 10*3/uL (0.04-0.35); Eosinophils % (A) 0.5 %; HCT 35.8 % (37.2-46.3); HGB 10.7 g/dL (12.0-15.0); Immature Grans, Automated 0 %; Lymphocytes # (A) 1.98 X 10*3/uL (0.90-5.00); Lymphocytes % (A) 47.3 %; MCH 24.5 pg (27.0-32.0); MCHC 29.9 g/dL (32.0-37.0); MCV 81.9 FL (80.0-97.0); Mean Platelet Volume 11.4 FL (9.5-12.2); Monocytes # (A) 0.46 X 10*3/uL (0.20-1.00); NRBC Per 100 WBC 0 X 10*3/uL (0.00-0.01); Neutrophils % (A) 40.5 %; Platelet Count 181 X 10*3/uL (140-440); RBC 4.37 X 10*6/uL (4.10-5.20); RDW 17.6 % (11.5-14.5); WBC 4.19 X 10*3/uL (4.50-10.00)
[2024-11-27 20:02] LABS: Immunoglobulin E <5.00 IU/mL (0.00-114.00)
[2024-11-27 20:05] LABS: % Iron Saturation 6.67 (12.00-45.00); ALT 15 U/L (8-44); AST 31 U/L (13-35); Albumin 3.8 g/dL (3.8-4.9); Albumin/Globulin Ratio 1.58 Ratio (1.60-3.17); Alkaline Phosphatase 85 U/L (41-126); Blood Urea Nitrogen 22.4 mg/dL (9.0-27.0); Calcium 8.8 mg/dL (8.7-10.3); Carbon Dioxide 22.5 mmol/L (21.6-31.8); Chloride 109 mmol/L (96-109); Ferritin 15.8 ng/mL (10.0-291.0); Globulin 2.4 g/dL (1.6-3.3); Glucose 78 mg/dL (70-110); Iron 25 UG/DL (50-170); Potassium 4.5 mmol/L (3.5-5.5); Sodium 141 mmol/L (135-145); Total Bilirubin <0.2 mg/dL (0.3-1.2); Total Iron Binding Capacity 375 UG/DL (228-460); Total Protein 6.2 g/dL (6.2-8.2)
== END | disposition home or self-care (01) ==
LOC: LABWHC1 11:57
PROVIDERS: ATTEND Family Medicine
DX: D53.8 Other specified nutritional anemias (principal); J45.30 Mild persistent asthma, uncomplicated
CPT/HCPCS: 36415; 80053; 82728; 82784; 82785; 83540; 83550; 84630; 85025; 86003; 86005; 86331; 86606

== ENCOUNTER → 2024-12-27 | Outpatient (CLI) | payer MEDICARE, BC ==
[2024-12-27 15:11] LABS: ALT 14 U/L (8-44); AST 24 U/L (13-35); Albumin 3.9 g/dL (3.8-4.9); Albumin/Globulin Ratio 1.44 Ratio (1.60-3.17); Alkaline Phosphatase 90 U/L (41-126); Blood Urea Nitrogen 26.5 mg/dL (9.0-27.0); Calcium 9.4 mg/dL (8.7-10.3); Carbon Dioxide 24.9 mmol/L (21.6-31.8); Chloride 106 mmol/L (96-109); Globulin 2.7 g/dL (1.6-3.3); Glucose 70 mg/dL (70-110); Iron 42 UG/DL (50-170); Sodium 141 mmol/L (135-145); T4, Free (Free Thyroxine) 1.01 ng/dL (0.80-1.80); Total Bilirubin <0.2 mg/dL (0.3-1.2); Total Iron Binding Capacity 420 UG/DL (228-460); Total Protein 6.6 g/dL (6.2-8.2)
[2024-12-27 15:20] LABS: Basophils # (A) 0.02 X 10*3/uL (0.00-0.10); Basophils % (A) 0.4 %; Eosinophils # (A) 0.04 X 10*3/uL (0.04-0.35); Eosinophils % (A) 0.8 %; HCT 37.2 % (37.2-46.3); Lymphocytes # (A) 2.61 X 10*3/uL (0.90-5.00); Lymphocytes % (A) 52.2 %; MCH 23.9 pg (27.0-32.0); MCHC 29.6 g/dL (32.0-37.0); MCV 80.7 FL (80.0-97.0); Mean Platelet Volume 11.5 FL (9.5-12.2); Monocytes # (A) 0.41 X 10*3/uL (0.20-1.00); Monocytes % (A) 8.2 %; NRBC Per 100 WBC 0 X 10*3/uL (0.00-0.01); Neutrophils # (A) 1.91 X 10*3/uL (1.80-7.70); Neutrophils % (A) 38.2 %; Platelet Count 229 X 10*3/uL (140-440); RBC 4.61 X 10*6/uL (4.10-5.20); RDW 17.3 % (11.5-14.5)
== END | disposition home or self-care (01) ==
LOC: LABWHC1 11:35
PROVIDERS: ATTEND Family Medicine
DX: D50.9 Iron deficiency anemia, unspecified (principal)
CPT/HCPCS: 36415; 80053; 82728; 83540; 83550; 84439; 84443; 85025

== ENCOUNTER → 2025-01-01 | Outpatient (CLI) | payer MEDICARE, BC ==
[2025-01-01 10:13] VITALS: BP 124/75; PULSE 66; RESP 16; TEMP 97.9; BMI 34.2
--- NOTE | 2025-01-01 11:41 | P.HPBAR ---
Bariatric H&P - History & Physicial H&P Date: 01/01/25 History & Physicial: Visit/CC: F/U Patient initial contact: Initial weight: 151.046 kg Initial weight in pounds: 333.00 Height: 5 ft 6 in Initial BMI: 53.7 Last weight: Current weight: 96.162 kg Current weight in pounds: 212.00 Current BMI: 34.2 [place] body weight (based on NIH guidelines): 59.09 kg Excess body weight loss: 59.6% The patient is a 59 year-old F who presents for Bariatric Assessment. Patient presents today for bariatric follow-up. Patient has had some minimal gerd issues. Patient has been chronically anemic. Patient is requesting to have a EGD and colonoscopy done for workup of anemia. Her last colonoscopy was over 8 years ago. Past Medical History Past Medical History: Cancer, Fibromyalgia, GERD/Reflux, Osteoarthritis (OA), Rheumatoid Arthritis (RA) Additional Past Medical History / Comment(s): HX OF AUTOIMMUNE DISORDER, SJOGREN'S SYNDROME, EDEMA TO ONEL EXTREMETIES, TREMORS with fatigue, HX MIGRAINES, LUPUS, HX OF HEPATITIS @ 14 MONTHS R/T TAINTED WATER, STATES HAS PROBLEMS R/T PITUATARY GLAND NOT HAVING "ENOUGH FLUID AROUND IT". December 2015 using snowblower and it pressed against abdomen/esophogas led to inflammation of area around lap band in January 2016 (led to band being emptied and subsequent edema). hx vertigo, encapsulated CA brain tumor. osteoporosis, curvature in spine History of Any Multi-Drug Resistant Organisms: None Reported Past Surgical History: Bariatric Surgery, Cholecystectomy, Hernia Repair, Hysterectomy, Orthopedic Surgery Additional Past Surgical History / Comment(s): brain tumor removed "astrocytomoa" rt oophorectomy, benign MOLES REMOVED, rt knee arthroscopy, Additional Past Anesthesia/Blood Transfusion Reaction / Comm: "STATES GETS VERY HYPER, POST-OP" Past Psychological History: Anxiety, Depression Smoking Status: Never smoker Past Alcohol Use History: None Reported Past Drug Use History: None Reported - Past Family History Mother Family Medical History: Cancer Additional Family Medical History / Comment(s): LEUKEMIA Surgical - Exam Vital Signs Temp Pulse Resp BP 97.9 F 66 16 124/75 01/01/25 10:07 01/01/25 10:07 01/01/25 10:01/01/25 10:07 - General well developed, well nourished, no distress - Eyes PERRL - ENT normal pinna - Neck no masses - Respiratory normal expansion - Cardiovascular Rhythm: regular - Abdomen Abdomen: soft, non tender Bariatric Assessment & Plan Plan: Gerd, anemia. Patient be scheduled for EGD and colonoscopy. Bariatric Checklist Checklist: Plan: Checklist: EGD: 1. Hiatal hernia: 2. H. Pylori: HgbA1c: Vitamin D: Smoking: Never smoker Primary care physician referral: Dr. Paul Psychiatry clearance: Cardiology clearance: Sleep study: Diet journal: VTE risk score: VTE risk level: Rehab needs at discharge:
[2025-01-01 15:04] LABS: HCT 34.8 % (37.2-46.3); HGB 10.8 g/dL (12.0-15.0); MCH 24.7 pg (27.0-32.0); MCV 79.6 FL (80.0-97.0); Mean Platelet Volume 11.4 FL (9.5-12.2); NRBC Per 100 WBC 0 X 10*3/uL (0.00-0.01); Platelet Count 229 X 10*3/uL (140-440); RBC 4.37 X 10*6/uL (4.10-5.20); RDW 17.2 % (11.5-14.5); WBC 4.52 X 10*3/uL (4.50-10.00)
[2025-01-01 16:10] LABS: % Iron Saturation 5.41 (12.00-45.00); ALT 13 U/L (8-44); AST 24 U/L (13-35); Albumin 3.8 g/dL (3.8-4.9); Albumin/Globulin Ratio 1.41 Ratio (1.60-3.17); Alkaline Phosphatase 86 U/L (41-126); BUN/Creat Ratio 19.11 Ratio (12.00-20.00); Blood Urea Nitrogen 17.2 mg/dL (9.0-27.0); Calcium 8.8 mg/dL (8.7-10.3); Carbon Dioxide 24.9 mmol/L (21.6-31.8); Chloride 106 mmol/L (96-109); Globulin 2.7 g/dL (1.6-3.3); Glucose 97 mg/dL (70-110); Iron 22 UG/DL (50-170); Potassium 4.6 mmol/L (3.5-5.5); Sodium 140 mmol/L (135-145); Total Bilirubin <0.2 mg/dL (0.3-1.2); Total Iron Binding Capacity 407 UG/DL (228-460); Total Protein 6.5 g/dL (6.2-8.2)
[2025-01-01 18:37] LABS: Magnesium 2.1 mg/dL (1.5-2.4)
[2025-01-02 13:24] LABS: Zinc, Serum 98 ug/dL (60-130)
== END ==
LOC: BARWHC3 09:35
PROVIDERS: ATTEND Surgery
DX: D64.9 Anemia, unspecified (principal); K21.9 Gastro-esophageal reflux disease without esophagitis; Z68.34 Body mass index [BMI] 34.0-34.9, adult; Z91.041 Radiographic dye allergy status; Z88.2 Allergy status to sulfonamides; Z88.5 Allergy status to narcotic agent
CPT/HCPCS: 84255; 80053; 82607; 82728; 82746; 83540; 83550; 83735; 84443; 84590; 84630; 85027; 82306; G0463; 99211

== ENCOUNTER 2025-01-25 06:43 | Day surgery (SDC) | payer MEDICARE, BC ==
[2025-01-23 15:51] VITALS: BMI 24.3
[2025-01-25] MEDS: LACTATED RINGERS 1,000 ML IV ONE (07:04)
[2025-01-25 07:09] VITALS: TEMP 97.6
[2025-01-25] MEDS ORDERED: LACTATED RINGERS 1,000 ML IV SCH (07:52)
[2025-01-25] MEDS ORDERED: LIDOCAINE 1% INJ 10MG/ML (20 ML MDV) ONE (08:12)
[2025-01-25] MEDS ORDERED: PROPOFOL 10 MG/ML 20 ML VIAL IV ONE (08:12)
--- NOTE | 2025-01-25 08:23 | P.GSHP ---
History of Present Illness H&P Date: 01/25/25 Chief Complaint: Gerd, anemia Is a 59-year-old female who presents today for EGD colonoscopy. Patient is issues with GERD and anemia. Her last hemoglobin was 10.8. Past Medical History Past Medical History: Cancer, Fibromyalgia, GERD/Reflux, Osteoarthritis (OA), Rheumatoid Arthritis (RA), Skin Disorder, Sleep Apnea/CPAP/BIPAP Additional Past Medical History / Comment(s): Low zinc, iron/anemia, has had iro n infusions the last 3 Mondays. HX OF AUTOIMMUNE DISORDER, SJOGREN'S SYNDROME, EDEMA TO BILATERAL EXTREMETIES, TREMORS with fatigue, frequent MIGRAINES, LUPUS, HX OF HEPATITIS AT 14 MONTHS R/T TAINTED WATER, STATES HAS PROBLEMS R/T PITUATARY GLAND NOT HAVING "ENOUGH FLUID AROUND IT". Hx vertigo, encapsulated cancerous brain tumor, osteoporosis, curvature in spine, neuropathy and Raynauds, "back of lungs and heart fibrous due to Lupus, CPAP use, varicose veins. labs for liver and kidneys hav been abnormal over the yrs due to Lupus, ebczema. History of Any Multi-Drug Resistant Organisms: None Reported Past Surgical History: Bariatric Surgery, Cholecystectomy, Hernia Repair, Hysterectomy, Orthopedic Surgery Additional Past Surgical History / Comment(s): Brain tumor removed "astrocytomoa", right oophorectomy, benign moles removed, right knee arthroscopy, colonoscopy, EGD. Additional Past Anesthesia/Blood Transfusion Reaction / Comment(s): "STATES GETS VERY HYPER, POST-OP." Smoking Status: Never smoker - Past Family History Mother Family Medical History: Cancer, COPD, CVA/TIA Additional Family Medical History / Comment(s): LEUKEMIA. Covid, . Medications and Allergies Home Medications Medication Instructions Recorded Confirmed Type Artificial Tears-Hypromellose 1 drop BOTH EYES DIRECTED 04/23/16 01/25/25 History [Artificial Tear Drops] Hydroxychloroquine Sulfate 400 mg PO SUSA 04/23/16 01/25/25 History [Plaquenil] Omeprazole [PriLOSEC] 20 mg PO BID 04/23/16 01/25/25 History Furosemide [Lasix] 40 mg PO DAILY 02/13/19 01/25/25 History FLUoxetine HCL [PROzac] 40 mg PO BID 03/02/19 01/25/25 History Fluticasone Nasal [place] [Flonase 2 spr EA NOSTRIL DAILY 03/02/19 01/25/25 History Nasal [place]] Hydrocortisone Cream 1 applic TOPICAL BID PRN 03/02/19 01/25/25 History [Hydrocortisone 2.5% Cream] Montelukast [Singulair] 10 mg PO HS 03/02/19 01/25/25 History SUMAtriptan succinate [Imitrex] 100 mg PO DAILY PRN 03/02/19 01/25/25 History tiZANidine HCL [Zanaflex] 4 mg PO BID 03/02/19 01/25/25 History Acetaminophen [Tylenol Extra 500 mg PO BID 02/17/21 01/25/25 History Strength] Saliva Stimulant Comb. No.3 1 spray MUCOUS MEM DAILY 02/17/21 01/25/25 History [Biotene Moisturizing Mouth] Triamcinolone 0.1% Cream [Kenalog 1 applic TOPICAL DIRECTED 02/17/21 01/25/25 History 0.1% Cream] Albuterol Inhaler [Ventolin Hfa 1 - 2 puff INHALATION Q6H PRN 12/07/22 01/25/25 History Inhaler] Add 5-T(Stress And Adrenals) 1 dose PO BID 01/23/25 01/25/25 History Ahf (Antihistamine ?Dose) 1 dose PO BID 01/23/25 01/25/25 History Astrazulus (Digestive) 0.5 tsp PO DAILY 01/23/25 01/25/25 History Biotene Mouth [place] 1 spray PO DIRECTED PRN 01/23/25 01/25/25 History Calcium Lactate 250 g PO BID 01/23/25 01/25/25 History Cirqtonic 1 dose PO BID 01/23/25 01/25/25 History Echinacea (Unknown Dose) 1 tab PO DAILY 01/23/25 01/25/25 History Fluticasone Propion/Salmeterol 1 inhalation PO DAILY PRN 01/23/25 01/25/25 History [Fluticasone-Salmeterol 250-50] Gastrodigest 2 2 tab PO BID-W/MEALS 01/23/25 01/25/25 History Hemoguard(Immunity) 1 dose PO BID 01/23/25 01/25/25 History Hydroxychloroquine Sulfate 200 mg PO MOTUWETHFR 01/23/25 01/25/25 History [Plaquenil] Ketoconazole [Ketoconazole 2%] 1 applic TOPICAL DIRECTED PRN 01/23/25 01/25/25 History Meclizine [Antivert] 25 mg PO BID 01/23/25 01/25/25 History Menthol [Biofreeze] 1 applic TOPICAL DAILY 01/23/25 01/25/25 History Morinde (Immunity) 1 dose PO TID 01/23/25 01/25/25 History Multivitamins, Thera [Multivitamin 1 tab PO DAILY 01/23/25 01/25/25 History (formulary)] Naltrexone HCl [Lotrexone] 3 mg PO HS 01/23/25 01/25/25 History Si-W (Sinus Supplement) 1 dose PO DAILY 01/23/25 01/25/25 History Slippery Elm Bark 0.5 tsp PO DAILY 01/23/25 01/25/25 History Stool Softener 50 mg PO DAILY 01/23/25 01/25/25 History Supplement For Inflammation 1 dose PO BID 01/23/25 01/25/25 History Topiramate [Topamax] 25 mg PO BID 01/23/25 01/25/25 History Vitamin B Complex 1 each PO BID 01/23/25 01/25/25 History Vitamin D (Liquid) 1 dose PO DAILY 01/23/25 01/25/25 History Wheat Germ (Unknown Dose) 1 dose PO BID 01/23/25 01/25/25 History Zinc Gluconate [Zinc] 50 mg PO BID 01/23/25 01/25/25 History levETIRAcetam [Keppra] 500 mg PO QAM 01/23/25 01/25/25 History Allergies Allergy/AdvReac Type Severity Reaction Status Date / Time Iodinated Contrast Media Allergy Anaphylaxis Verified 01/25/25 07:03 [Iodinated Contrast Media - IV Dye] povidone-iodine Allergy Anaphylaxis Verified 01/25/25 07:03 Sulfa (Sulfonamide Allergy Rash/Hives/ Verified 01/25/25 07:03 Antibiotics) EDEMA/FEVER sulfamethoxazole Allergy Unknown Verified 01/25/25 07:03 [From Bactrim] trimethoprim [From Bactrim] Allergy Unknown Verified 01/25/25 07:03 codeine phosphate AdvReac Nausea & Verified 01/25/25 07:03 [From Tylenol-Codeine] Vomiting Surgical - Exam Vital Signs Temp Pulse Resp BP Pulse Ox 97.6 F 62 16 144/72 99 01/25/25 07:07 01/25/25 07:07 01/25/25 07:07 01/25/25 07:07 01/25/25 07:07 - General well developed, well nourished, no distress - Eyes PERRL - ENT normal pinna, normal nares - Neck no masses - Respiratory normal expansion - Cardiovascular Rhythm: regular - Abdomen Abdomen: soft, non tender Assessment and Plan Assessment: Gerd, anemia. Will perform EGD and colonoscopy.
--- NOTE | 2025-01-25 08:42 | P.OP ---
Date of Procedure: 01/25/25 Preoperative Diagnosis: Gerd Anemia Postoperative Diagnosis: Gastritis Normal colon Procedure(s) Performed: EGD Colonoscopy Anesthesia: MAC Surgeon: Harpal Pemberton Pathology: other (Antrum) Condition: stable Disposition: PACU Description of Procedure: The patient was placed on the endoscopy table in the lateral position. She received IV sedation. The gas was placed oropharynx passed in the esophagus and the stomach. Scope in place through the pylorus. The first and second portion of the duodenum appeared normal. Scope was in the back antrum this was mildly Fl[place]. A biopsy performed. The scope was then retroflexed and the remainder of the stomach appeared normal. Patient previously had Lap-Band's without evidence of inflammation or erosion. The GE junction was at 40 cm. The distal esophagus appeared normal. The proximal esophagus pro appeared normal. Scope the scope was then withdrawn from patient. Next digital rectal exam performed. This revealed no abnormalities. The flexible colonoscope was then placed patient anus passed throughout the entire colon. The ileocecal valve was visualized. The cecum, ascending and transverse colon appeared normal. The descending and sigmoid colon appeared normal. Scope withdrawn for the patient.
[2025-01-25 08:43] VITALS: RESP 14
[2025-01-25 09:00] VITALS: BP 124/71; PULSE 58
== END 2025-01-25 09:31 | disposition home or self-care (01) ==
LOC: ORWHC2ENDO 06:43
PROVIDERS: ATTEND Surgery
DX: K29.50 Unspecified chronic gastritis without bleeding (principal); K21.9 Gastro-esophageal reflux disease without esophagitis; D64.9 Anemia, unspecified; M79.7 Fibromyalgia; M19.90 Unspecified osteoarthritis, unspecified site; M06.9 Rheumatoid arthritis, unspecified; I73.00 Raynaud's syndrome without gangrene; M32.9 Systemic lupus erythematosus, unspecified; M35.00 Sjogren syndrome, unspecified; J45.909 Unspecified asthma, uncomplicated; G47.30 Sleep apnea, unspecified; Z88.2 Allergy status to sulfonamides; Z88.1 Allergy status to other antibiotic agents; Z88.8 Allergy status to other drugs, medicaments and biological substances; Z88.5 Allergy status to narcotic agent; Z88.6 Allergy status to analgesic agent; Z90.49 Acquired absence of other specified parts of digestive tract; Z90.710 Acquired absence of both cervix and uterus; Z90.721 Acquired absence of ovaries, unilateral; Z91.041 Radiographic dye allergy status; Z98.890 Other specified postprocedural states; Z79.51 Long term (current) use of inhaled steroids; Z99.89 Dependence on other enabling machines and devices
CPT/HCPCS: 88305; 45378; 43239; J2003; J2704

== ENCOUNTER → 2025-02-09 | Outpatient (CLI) | payer MEDICARE, BC ==
[2025-02-10 02:11] LABS: Basophils # (A) 0.03 X 10*3/uL (0.00-0.10); Basophils % (A) 0.7 %; Eosinophils # (A) 0.06 X 10*3/uL (0.04-0.35); Eosinophils % (A) 1.4 %; HCT 39.5 % (37.2-46.3); HGB 12.1 g/dL (12.0-15.0); Immature Grans, Automated 0 %; Lymphocytes # (A) 1.96 X 10*3/uL (0.90-5.00); Lymphocytes % (A) 46.9 %; MCH 26.9 pg (27.0-32.0); MCHC 30.6 g/dL (32.0-37.0); MCV 87.8 FL (80.0-97.0); Mean Platelet Volume 10.7 FL (9.5-12.2); Monocytes # (A) 0.33 X 10*3/uL (0.20-1.00); Monocytes % (A) 7.9 %; NRBC Per 100 WBC 0 X 10*3/uL (0.00-0.01); Neutrophils % (A) 43.1 %; Platelet Count 179 X 10*3/uL (140-440); RDW 21.8 % (11.5-14.5); WBC 4.18 X 10*3/uL (4.50-10.00)
[2025-02-10 02:53] LABS: ALT 27 U/L (8-44); AST 33 U/L (13-35); Albumin 3.6 g/dL (3.8-4.9); Albumin/Globulin Ratio 1.44 Ratio (1.60-3.17); Alkaline Phosphatase 92 U/L (41-126); BUN/Creat Ratio 22.62 Ratio (12.00-20.00); Blood Urea Nitrogen 18.1 mg/dL (9.0-27.0); Calcium 8.9 mg/dL (8.7-10.3); Carbon Dioxide 22.1 mmol/L (21.6-31.8); Chloride 110 mmol/L (96-109); Globulin 2.5 g/dL (1.6-3.3); Glucose 79 mg/dL (70-110); Iron 88 UG/DL (50-170); Potassium 4.7 mmol/L (3.5-5.5); Sodium 142 mmol/L (135-145); Total Bilirubin <0.2 mg/dL (0.3-1.2); Total Iron Binding Capacity 220 UG/DL (228-460); Total Protein 6.1 g/dL (6.2-8.2)
== END | disposition home or self-care (01) ==
LOC: LABWHC1 15:27
PROVIDERS: ATTEND Family Medicine
DX: D50.9 Iron deficiency anemia, unspecified (principal)
CPT/HCPCS: 36415; 80053; 82728; 83540; 83550; 84630; 85025

== ENCOUNTER → 2025-04-23 | Outpatient (CLI) | payer MEDICARE, BC ==
--- NOTE | 2025-04-23 14:46 | MR ---
EXAMINATION TYPE: MR hip RT wo con DATE OF EXAM: 04/23/2025 2:18 PM COMPARISON: CT abdomen and pelvis September 11, 2022 CLINICAL INDICATION: Female, 59 years old with history of M25.551 PAIN IN RIGHT HIP, RT hip pain, Hx of Brain cancer IV Contrast: cc (None if empty) Standard multiplanar, multisequence MRI departmental protocol Multiplanar, multisequence images of the pelvis focusing on the right hip were acquired without contr ast. FINDINGS: Symmetric moderate axial joint space loss in both hips with mild acetabular spurring. Small hip joint effusions left greater than right are noted. Femoral head changes are maintained bilateral ly. No serpiginous diminished T1 signal to suggest avascular necrosis is identified. No suspicious in creased T2 signal or osseous edema is noted. Mild increased T2 signal at level of greater trochanters more prominent on the left consistent with mild insertional tendinosis. Muscle bulk shows symmetry. There is mild generalized atrophy bilaterally. No groin hernia or adenopathy is seen. Uterus is suspected surgically absent. No free fluid in the pelvis is noted. No suspicious bowel dila tation. IMPRESSION: [id number] degenerative changes of both hips are seen as detailed above. [facility], , 04/23/2025 2:44 PM
== END | disposition home or self-care (01) ==
LOC: RADMRIMAIN 13:20
PROVIDERS: ATTEND Family Medicine
DX: M16.0 Bilateral primary osteoarthritis of hip (principal)